=== PATIENT | female | born 1950 | race Caucasian/White ===

== ENCOUNTER 2019-04-08 10:09 | Inpatient (IN) | payer MEDICARE, OTHER, SELFPAY ==
[2019-04-01 09:41] VITALS: BMI 26.6
[2019-04-08] VITALS (16 sets, daily range): BP systolic 100–135; BP diastolic 55–95; PULSE 87–125; RESP 12–18; TEMP 36–36.8; O2SAT 89–98; BMI 26.6
--- NOTE | 2019-04-08 | DI.RAD.S_ITS ---
PROCEDURE: XR LUMBAR SPINE 2-3V INDICATIONS: L4-5, L5-S1 TLIF TECHNIQUE: 2 views of the lumbar spine were acquired. COMPARISON: None. FINDINGS: 2 intraoperative fluoroscopic images of the lumbar spine were acquired. Patient is status post posterior spinal fusion of L4-S1 with bilateral paraspinal rods and pedicular screws. Intervertebral disc graft is noted at L4-5 and L5-S1. Postoperative alignment appears anatomic. No acute hardware complication. IMPRESSION: Status post posterior spinal fusion of L4-S1. No acute hardware complication. Dictated by: Kamari Toscano M.D. on 04/08/2019 at 15:35 Approved by: Kamari Toscano M.D. on 04/08/2019 at 15:39
[2019-04-08] MEDS: LACTATED RINGERS 1,000 ML 42 ML IV ×2 (10:41→13:52)
--- NOTE | 2019-04-08 11:39 | PM.PREOP ---
Pre-operative Note Interval Note History & Physical reviewed/Exam performed by Physician: Yes Changes to H&P: No
[2019-04-08] MEDS: fentaNYL 100 MCG/2 ML INJ 50 MCG IV (12:02)
[2019-04-08] MEDS: CEFAZOLIN 2 GM/100 ML FROZ.PIGGY IV ×2 (12:15→21:16)
--- NOTE | 2019-04-08 12:58 | SUR.OPER ---
Prone on spine table, head in foam head support, padded chest and pelvic supports, gel pad at knees, lower legs supported by pillows; nipples, genitalia and toes free of pressure, arms secured on foam padded arm boards at <90 degrees abduction. Tape over blanket at thigh secured to table.
[2019-04-08] MEDS: BUPIVACAINE LIPOSOME 266 MG/20 ML VIAL INJ (13:08)
[2019-04-08] MEDS: BUPIVACAINE 0.25% W/ EPI 30 ML VIAL INJ (13:08)
--- NOTE | 2019-04-08 15:47 | P.OP_ITS ---
Operative Date/Time/Diagnoses Date of procedure: 04/08/19 Time of procedure: 12:45 Pre-op diagnosis: 1. Lumbar spinal stenosis L4-5, L5-S1 2. Lumbar spinal stenosis L4-5, L5-S1 Post-op diagnosis: same Procedure & Clinicians Procedure: 1. L4-5, L5-S1 Postero-lateral and posterior interbody fusion 2. L4-5, L5-S1 interbody cage placement. 3. L4-5, L5-S1 decompressive laminectomy with bilateral facetecomies 4. L4-5, L5-S1 Posterior segmental instrumentation 5. [place] of bone marrow from iliac crest 6. Utilization of microsurgical technique and operating microscope Same procedure as scheduled: Yes Indications: Patient has been having chronic back pain and worsening lumbar radiculopathy. Patient failed multiple conservative management with worsening pain weakness and numbness in her lower extremity. Patient has been having difficulty performing activity of daily living. After discussing risks benefits of treatment options, patient elected proceed with surgery. Surgeon: Alonso Zambrano Global Marketing Coordinator: Polly Peraza Click Yes if Unassisted: No Anesthesia Type: General Operative Notes Closure Type: primary Specimen(s): none sent Prosthetic devices, grafts, tissues, transplants, or devices: Globus revolve screws, Rise cages Applied: catheter Estimated Blood Loss (mL): 100 Blood products transfused: none Procedure in detail: Patient was seen in the preoperative area. Risks and benefits of the surgery was discussed with the patient. Informed consent was obtained from the patient and placed in the chart. Surgical site was marked. Patient was taken to the operative room. General anesthesia was administered. Prophylactic antibiotic was given to the patient less than 30 min before the incision was made. Patient was placed into a prone position on the Jeff table. Patient's back was then prepped and draped in the sterile fashion. Time- out was performed at this time. Using AP and lateral C-arm imaging the interval between L4-S1 was identified and marked on patient's back. A 2 inch incision 2 in from midline was made on the left side first. The fascia was incised in line with skin incision. Globus MARS retractors was placed inside the incision and docked onto the L4 and L5 lamina. Using microsurgical technique and operating microscope, a L4 and L5 laminectomy and L4-5 L5-S1 facetectomy was performed using a Kerrison rongeur. During the process of decompression more than 75% of bilateral L4-5 L5-S1 facets were removed in order to decompress the spinal canal and the lateral recess. The L4- 5 L5-S1 level was grossly unstable after the decompression was completed and requiring the fusion procedure. Patient was found have severe neural foramen and central stenosis, which was fully decompressed after decompression was completed. The disc space at L4-5, L5-S1 was identified. And a total diskectomy was performed at L4-5, L5-S1 level. The endplates were decorticated using a rasp and shaver. The total diskectomy and decortication was performed at L4-5, L5-S1 level in order to to accomplish a L4-5, L5-S1 fusion. The local bone from the laminectomy and facetectomy was saved for local bone grafting. After the total diskectomy and decortication was completed, Bio4 bone graft material was combined with local bone that was harvested earlier. At this time, a separate skin is incision was made over the iliac crest. A Jamshidi needle was inserted into the iliac crest through a separate skin incision. 5 cc of bone marrow aspiration was obtained through the separate skin incision using a Jamshidi needle from the iliac crest. The bone marrow aspiration was combined with local bone and the Bio4 bone grafting material. The bone grafting material was placed into the L4-5, L5-S1 interbody space along with two cages, one expandable cage at each level. The cages were expanded to their maximum height using the torque limiting screwdriver. At this time a mirror image incision was made on the right side. The fascia was incised in line with the skin incision. Globus MARS retractor was inserted and docked onto the L4-5, L5-S1 posterolateral gutter. Using the power drill, posterior-lateral decortication was performed at L4-5, L5-S1 level until bleeding cortical bone was identified. The remaining bone grafting material was placed into the L4-5 L5-S1 posterior lateral gutter he order to accomplish posterolateral fusion at the L4-5 L5-S1 levels. Using the double C-arm technique, pedicle screws were placed into the L4, L5, S1 pedicles bilaterally. This was done by placing the Jamshidi needle into the pedicles, then placing the guidewires over the Jamshidi needle, and finally placing the cannulated screws over the guidewires bilaterally. After the pedicle screws were placed, 2 titanium rods was locked into the heads of the pedicle screws using locking caps and torque limiting screwdriver. Total 6 pedicles screws were placed. After all the hardware was placed, and confirmed with AP and lateral C-arm imaging, the wound was then irrigated with sterile normal saline and packed with Ray-Stephen gauze for 3 min to accomplish hemostasis. After the gauze was removed the deep fascia was closed with #1 Vicryl suture. The subcutaneous layer was closed with 2-0 Vicryl. The skin was closed with skin bryn. Patient tolerated the procedure well. There were no complications. Complications: none Condition: stable Disposition: PACU Plan for aftercare: Admit to inpatient hospital
[2019-04-08] MEDS: HYDROMORPHONE 2 MG INJ 0.5 MG IV ×8 (16:00→16:35)
[2019-04-08] MEDS: hydrOXYzine 50 MG/ML INJ 25 MG IM (16:20)
[2019-04-08] MEDS: SODIUM CHLORIDE 0.9% 1,000 ML 100 ML IV (17:50)
--- NOTE | 2019-04-08 19:24 | PM.PNPO.1 ---
Subjective Date Patient Seen: 04/08/19 Time Patient Seen: 19:24 Interval history: Patient is status post spine surgery earlier today. According to the nursing staff and patient came from surgery she was quite apneic and was only breathing 7-9 breaths per minute. Took quite sometime to wake the patient back up. No Narcan was given. Patient was initially on 5 L but is now breathing fine on 2 L with her CPAP. Main issue has been tachycardia where her pulse has been in the 120s. Exam Vital Signs (past 8 hours): - 04/08/19 15:40 04/08/19 15:45 04/08/19 16:00 Temperature 96.9 F L 97.4 F L 97.2 F L Pulse Rate 99 H 97 H 98 H Respiratory Rate 14 12 12 Blood Pressure 108/55 L 113/72 127/85 Pulse Oximetry 92 93 94 04/08/19 16:14 04/08/19 16:30 04/08/19 16:40 Temperature 97.1 F L 97.2 F L 97.2 F L Pulse Rate 89 93 H 89 Respiratory Rate 18 12 12 Blood Pressure 134/82 128/73 132/88 Pulse Oximetry 94 93 98 04/08/19 16:50 04/08/19 17:10 04/08/19 17:40 Temperature 97.2 F L 96.8 F L 97.3 F L Pulse Rate 87 105 H 102 H Respiratory Rate 14 16 15 Blood Pressure 127/95 H 122/75 100/70 Pulse Oximetry 93 89 L 93 04/08/19 18:10 Temperature 97.4 F L Pulse Rate 99 H Respiratory Rate 16 Blood Pressure 119/88 Pulse Oximetry 97 Oxygen Delivery Method Nasal Cannula Oxygen Flow Rate 4 Narrative Exam Narrative: Patient was seen in her hospital room this evening. She is resting comfortably. No sign of any distress. Patient's pulse ox and blood pressure were stable. Pulse at the time of visit was 123. Patient is breathing above 90% at 2 L. Assessment & Plan Post-op Postoperative Procedures Operation Date: 04/08/19 12:15 Actual Procedures Side Surgeon p L4-5,L5-S1 TLIF w/posterior instrumentation Alonso Zambrano MD Time Spent With Patient less than 15 minutes Quality VTE Deep Vein Thrombosis/Pulmonary Embolism Present on Admission: No
--- NOTE | 2019-04-08 19:42 | PC.NURSE ---
Addendum entered by Koki Austin R.N. 04/08/19 23:25: Until 2099 patient sleeping, snoring, CPAP on with 4L O2 bled into machine, saturation 90-94% HR still tachycardic at 125 bpm. Since 2099 Batsheva has been wide awake, oriented x 3, told me she did not remember anything since in pre-op. RA oxygen 98%, no SOB observed. HR still tachycardic at 112-120 bpm. CMS intact. She tolerated jello and coffee. Reported low back and LLE pain 06/08, assisted her to reposition in bed with little to no relief. Ice pack in place to low back, drsg remains CDI. Medicated with oxycodone and tylenol. Call button use reinforced, patient reoriented to room & call button. Spouse here until 1999 then left for the night. Original Note: Post-op notes: Batsheav brought from PACU very sedated, unable to keep patient awake for more than 20-30 seconds before she would fall back asleep. Only able to wake with loud voice or touch. HR 100-102 bpm, LANDSCAPE CONTRACTOR clarified that she had been around 100 bpm post-operatively. 2L O2 sat dropping to 87% When I switched her over from NC to CPAP mask, sats 84% and slowly dropping. 2L o2 weaned into CPAP with sats only 88% I then increased O2 to 5L weaned into CPAP & sats then maintained 91-92% Face very pale. Unable to keep patient awake, respirations at that time were 8 or 9/minute. I notified Antonia rust RN of this situation, I also notified her that I did not have a prn order for Narcan. Surgery told me that Dr Zambrano was not in hospital any longer. Antonia called down to OR and asked if Dr Couch would come & see patient when available. Patient's spouse Suman told me that she had no cardiac history except for vasovagal something where her BP would drop & she would almost pass out. Since that time patient has woken up more, wakes easily to voice, speech clear somtimes slurred, oriented to situation. Face flushed pink, HR increasingly tachycardic in the last hour, HR now sustaining 120-125 bpm, BP 119/88 & 125/85. CMS intact, she denies numbness/tingling to extremities. Foot SCD's in place. Bulky gauze drsg to back is CDI. I notified Dr Couch of increased tachycardia and previous apnea/sedation, he came up to see patient. Ordered to keep monitoring HR & VS.
[2019-04-08] MEDS: ONDANSETRON 4 MG ODT 8 MG PO (22:47)
[2019-04-08] MEDS: ACETAMINOPHEN 325 MG TABLET 650 MG PO (22:48)
[2019-04-08] MEDS: OXYCODONE IR 10 MG TABLET PO (22:48)
[2019-04-09] MEDS: OXYCODONE IR 10 MG TABLET PO ×5 (03:28→18:22)
[2019-04-09] MEDS: CEFAZOLIN 2 GM/100 ML FROZ.PIGGY IV (03:28)
[2019-04-09] MEDS: SODIUM CHLORIDE 0.9% 1,000 ML 100 ML IV (03:29)
[2019-04-09 03:34] VITALS: BP 101/58; PULSE 94; RESP 16; TEMP 36.8; O2SAT 92
[2019-04-09 05:54] LABS: Hematocrit 35.9 % (36-46); Hemoglobin 12.6 g/dL (12.0-16.0)
[2019-04-09] MEDS: LEVOTHYROXINE 50 MCG TABLET PO (05:56)
[2019-04-09] MEDS: LIOTHYRONINE 25 MCG TABLET PO (05:56)
--- NOTE | 2019-04-09 07:26 | P.PN_ITS ---
Subjective Date Patient Seen: 04/09/19 Time Patient Seen: 07:23 Interval history: Patient's pain this morning is mild. Denies fever chills. No nausea vomiting. She is having no chest pain or shortness of breath. Denies feeling dizzy lightheaded. She has not been out of bed since surgery. States she was slow to come out of anesthesia yesterday afternoon. will be home available to assist her upon discharge. Exam Vital Signs (past 8 hours): - 04/08/19 23:50 04/09/19 03:34 Temperature 98.2 F 98.2 F Pulse Rate 108 H 94 H Respiratory Rate 18 16 Blood Pressure 112/70 101/58 L Pulse Oximetry 93 92 Oxygen Delivery Method Room Air,CPAP Oxygen Flow Rate 4 Narrative Exam Narrative: Pleasant 68-year-old female resting comfortably in bed in no apparent distress. Lumbar dressing is clean, dry and intact. Motor function is intact bilateral lower extremities. Sensation grossly intact to light touch bilateral lower extremities. Both legs are warm and dry. SCDs are on bilateral lower extremities. Objective Labs Result Diagrams: 04/09/19 05:30 Labs: Laboratory Results - last 24 hr 04/09/19 05:30 Hgb 12.6 Hct 35.9 L Assessment & Plan Post-op Postoperative Procedures Operation Date: 04/08/19 12:15 Actual Procedures Side Surgeon p L4-5,L5-S1 TLIF w/posterior instrumentation Alonso Zambrano MD Postop day 1 status post L4-L5, L5-S1 fusion. Reviewed note by Dr. Couch from yesterday afternoon. Patient had remained stable overnight. Will order [facility]. Mobilize with physical therapy. Limit bending, twisting, lifting. Likely discharge home tomorrow. Quality VTE Deep Vein Thrombosis/Pulmonary Embolism Present on Admission: No
[2019-04-09 07:40] VITALS: BP 119/79; PULSE 100; RESP 16; TEMP 36.9; O2SAT 93
[2019-04-09] MEDS: GABAPENTIN 300 MG CAPSULE 900 MG PO (08:14)
[2019-04-09] MEDS: PANTOPRAZOLE 40 MG TABLET PO ×2 (08:15→21:50)
[2019-04-09] MEDS: DOCUSATE 100 MG CAPSULE PO ×2 (08:15→21:50)
[2019-04-09] MEDS: ONDANSETRON 4 MG ODT 8 MG PO ×2 (08:17→18:22)
[2019-04-09 08:28] LABS: Alanine Aminotransferase 34 IU/L (9-52); Albumin Globulin Ratio 1.4 (1.0-2.8); Alkaline Phosphatase 50 U/L (38-126); Aspartate Aminotransferase 41 IU/L (14-36); Bilirubin Total 0.4 mg/dL (0.2-1.3); Blood Urea Nitrogen 10 mg/dL (7-17); Calcium 8.5 mg/dL (8.4-10.2); Carbon Dioxide 29 mmol/L (22-32); Chloride 105 mmol/L (98-107); Estimated Glomerular Filt Rate > 60.0 mL/min (>60); Globulin 2.2 g/dL (1.7-4.1); Glucose 111 mg/dL (80-110); HEMOLYSIS < 15 (0-50); Sodium 138 mmol/L (137-145); Total Protein 5.2 g/dL (6.3-8.2)
[2019-04-09] MEDS: ACETAMINOPHEN 325 MG TABLET 650 MG PO (09:23)
--- NOTE | 2019-04-09 10:02 | PT.IIE ---
Current Diagnoses Other spondylosis with radiculopathy, lumbosacral region (04/08/19) Spinal stenosis, lumbar region without neurogenic claudication (04/08/19) Postlaminectomy syndrome, not elsewhere classified (04/08/19) Surgery Performed Operation Date: 04/08/19 12:15 Actual Procedures p L4-5,L5-S1 TLIF w/posterior instrumentation - Alonso Zambrano MD Surgical History (Last Updated 04/01/19 @ 10:30 by Taryn Brewster RN) History of bilateral carpal tunnel release (Acute) History of bilateral cataract extraction (Acute ~2010) History of bladder suspension procedure (Acute) History of laparotomy (Acute) History of surgery (Acute ~1955) History of total abdominal hysterectomy and bilateral salpingo-oophorectomy (Acute ~1978) Hx of appendectomy (Acute) Hx of cardiac catheterization (Acute ~07/2011) Hx of cholecystectomy (Acute ~1998) Hx of laminectomy (Acute ~2011) History of stress incontinence procedure using tension free vaginal tape (Resolved) Status post hysterectomy Status post ovarian cystectomy Medical History (Last Updated 04/01/19 @ 10:37 by Taryn Brewster, ISABELLE) Anemia (Acute) Arrhythmia (Acute) Arthritis (Acute) BLAYNE III (cervical intraepithelial neoplasia III) (Acute) Cervical spondylosis (Acute) Compression fracture of T12 vertebra (Acute) Depression (Acute) Elevated diaphragm (Acute) Fibromyalgia (Acute) GERD (gastroesophageal reflux disease) (Acute) Gastroparesis (Acute) HLD (hyperlipidemia) (Acute) HTN (hypertension) (Acute) Heart murmur (Acute) History of blood clots (Acute ~1974) History of electrophysiologic study (Acute ~11/2011) Hx of vaginal delivery (Acute) Hypothyroidism (Acute) Lymphocytic colitis (Acute) Near syncope (Acute) Non-sustained ventricular tachycardia (Acute) Numbness (Acute ~2018) ELIAS on CPAP (Acute) Ovarian cyst (Acute) RLS (restless legs syndrome) (Acute) Urinary incontinence (Acute) Physical Therapy Inpatient Evaluation/Re-Eval M1 PT/OT-IP Prior Functional Status Start: 04/09/19 11:40 Freq: NEEDED Status: Active Protocol: Document 04/09/19 10:02 AB (Rec: 04/09/19 11:50 AB [id number]) Medical Review Prior Functional Status Medical History Reviewed Yes Communication able to maken needs known Mobility and Gait pt stated that her spouse has been helping her for the last 3 weeks due to her back pain and has been using a FWW. prior to that, pt was independent with all mobilities and ambulation without AD Activities of Daily Living and IADL's pt stated that her spouse assists her with dressing, getting in /out of the shower and stair climbing Social History Household Members spouse Living Arrangements House Number of Floors (Floors) Two Floors Number of Stairs To Enter/Railing? will stay on main level of the house has 2 steps without rails to enter Home Environment Standard Height Toilet Walk in Shower Home Equipment Front Wheel Walker Straight Cane Shower Seat with Backrest Hand Held Shower Auto Air Conditioning Mechanic M2 PT-IP Current Condition Start: 04/09/19 11:40 Freq: NEEDED Status: Active Protocol: Document 04/09/19 10:02 AB (Rec: 04/09/19 11:50 AB [id number]) Physical Therapy Current Condition Current Condition Evaluation Date 04/09/19 Treatment Diagnosis s/p L4-S1 fusion/lami; difficulty in walking Onset Date 04/08/19 Precautions Lumbar Precautions Log Roll No Twisting Limit Bending Lifting Restriction of 10 lbs Gait Belt above Incisional Area M3 PT-IP Subjective Start: 04/09/19 11:40 Freq: NEEDED Status: Active Protocol: Document 04/09/19 10:02 AB (Rec: 04/09/19 11:50 AB [id number]) Subjective Physical Therapy Visit Type Type Initial Evaluation Visit Start Time 10:02 Visit Stop Time 10:42 Total Visit Minutes 40 Number of B[employer]ER [employer]TERY Visits 0 Physical Therapy Visit Comments Patient Comments pt agreeable to do PT Therapy Pain Assessment Pain When Pain Assessed At Rest Pain Present Pain Present Pain Reported Location Lower Back Intensity 4 Scale Used increases to 6/10 with movement Pain Management Techniques Apply Cold Re-positioning Timing of Activity with Medications M4 PT-IP Mobility and Gait Start: 04/09/19 11:40 Freq: NEEDED Status: Active Protocol: Document 04/09/19 10:02 AB (Rec: 04/09/19 11:50 AB [id number]) PT-Bed Mobility Assessment Rolling Type of Rolling Log Rolling Level of Assist Minimal Assistance Supine to Sit Supine to Sit Minimal Assistance Scooting Scooting to Edge of Bed Standby Assistance PT-Transfer Assessment Sit to and From Stand Sit to and from Stand Moderate Assistance 1 Person Assistance Use of Upper Extremities Equipment Transfer Assistive Device Gait Belt Front Wheeled Walker Orthotic/Prosthetic Devices or Brace: No Transfers Transfer Destination Chair Transfer Technique Stand Step Pivot Transfer Ability Level of Assist Moderate Assistance Use of Upper Extremities Gait Assessment Gait Gait Assistance Required: Moderate Assistance Distance (Feet) 25 Able to Maintain Weight Bearing Status Yes During Gait Assistive Devices Assistive Device Gait Belt Front Wheeled Walker Orthotic/Prosthetic Devices or Brace: No Gait Deviations General Gait Pattern Antalgic Decreased Stride Length Decreased Feet Clearance Step-to Gait Factors Limiting Gait Function Factors Limiting Gait Function Decreased Activity Tolerance Decreased Sensation Decreased Strength Limited Range of Motion Pain Poor Balance Poor Safety Awareness PT-Balance Assessment Sitting Balance and Reactions Static Sitting Balance Ability Good Dynamic Sitting Balance Ability Good Standing Balance and Reactions Static Standing Balance Ability Fair Dynamic Standing Balance Ability Fair Device Used FWW M5 PT-IP Objective Assessments Start: 04/09/19 11:40 Freq: NEEDED Status: Active Protocol: Document 04/09/19 10:02 AB (Rec: 04/09/19 11:50 AB [id number]) Orientation Orientation/Cognition Level of Alertness Alert Orientation Name Place Situation Safety Awareness Decreased Safety Awareness Memory Description Short Term Impaired Gross Range of Motion Lower Extremity ROM Assessment Within Functional Limits Strength Lower Extremity Strength Assessment Bilaterally Impaired Comments Strength Comments RLE 4-/5 LLE: 3+/5 Coordination Assessment Gross Coordination Gross Coordination WNL Sensation Assessment Sensation Gross Sensation Left LE Impaired Light Touch Impaired Proprioception (Position) Impaired Sensation Description Numbness Tingling Muscle Tone Muscle Tone WNL Yes M6 PT-IP Treatment Start: 04/09/19 11:40 Freq: NEEDED Status: Active Protocol: Document 04/09/19 10:02 AB (Rec: 04/09/19 11:50 AB [id number]) Physical Therapy Treatment Education Education Provided Precautions Weight Bearing Status Post-Op Packet Safety M7 PT-IP Assessment and Plan Start: 04/09/19 11:40 Freq: NEEDED Status: Active Protocol: Document 04/09/19 10:02 AB (Rec: 04/09/19 11:50 AB [id number]) PT Summary Assessment and Plan Potential Rehabilitation Potential Good Status of Condition at Evaluation Stable Summary Impairments Pain ROM Strength Balance Coordination Sensation Tone Cognition Bed Mobility Transfers Gait Activity Tolerance Assessment Summary pt requiring mod A with mobility and can be impulsive. pt will likely improve during hospital stay and spouse will be able to assist pt at home. will conduct caregiver training when appropriate and complete stair climbing training prior to d/ c. Goals Bed Mobility Goal Independent Transfer Goal Standby Assistance Front Wheeled Walker Gait Goal Standby Assistance Front Wheel Walker Gait Distance 150 Other Goals up/down 2 steps without rails: use SPC/CUT FILER CGA Days to Meet Goals 5 Frequency of Treatment Frequency Of Treatment Twice a Day Treatment Plan Physical Therapy Treatment Plan Bed Mobility Training Transfer Training Gait Training Therapeutic Exercise Balance Retraining Post Op Education Discharge Planning Hot or Cold Pack Neuromuscular Re-ed Coordination Retraining Manual Therapy Recommendations To Nursing Amount of Assist Needed 1 Person Assist Discharge Recommendations PT Discharge Recommendations Home with Assistance
[2019-04-09 11:42] VITALS: BP 130/71; PULSE 104; RESP 20; TEMP 36.4; O2SAT 94
--- NOTE | 2019-04-09 11:42 | PC.NURSE ---
Day Shift- Pt A&OX4, able to make needs known using call light. Rates 6-7/10 pain this AM to surgical site incision area. PRN Oxycodone given X2 at 0815 & 1135. Pt requested prn Zofran with Oxycodone to prevent nausea. Tylenol prn given at 0925 per pt request due to pain not decreasing after 0815 Oxycodone dose. Lower back incision covered with bulky dresisng that is intact with small amount of bloody drainage shadowing to right mid dressing. Pt reports numbness from left toes to below knee that is not new and numbness to right thigh that is chronic. HR tachy 90's-low 100's. Dr's previously aware. IVF infusing well, enc pt to drink fluids. Urinary catheter remains in place at this time until PT session. Will monitor.
--- NOTE | 2019-04-09 13:00 | PT.IPTN ---
Current Diagnoses Other spondylosis with radiculopathy, lumbosacral region (04/08/19) Spinal stenosis, lumbar region without neurogenic claudication (04/08/19) Postlaminectomy syndrome, not elsewhere classified (04/08/19) Surgery Performed Operation Date: 04/08/19 12:15 Actual Procedures p L4-5,L5-S1 TLIF w/posterior instrumentation - Alonso Zambrano MD Physical Therapy Treatment Note M2 PT-IP Current Condition Start: 04/09/19 11:40 Freq: NEEDED Status: Active Protocol: Document 04/09/19 10:02 AB (Rec: 04/09/19 11:50 AB [id number]) Physical Therapy Current Condition Current Condition Evaluation Date 04/09/19 Treatment Diagnosis s/p L4-S1 fusion/lami; difficulty in walking Onset Date 04/08/19 Precautions Lumbar Precautions Log Roll No Twisting Limit Bending Lifting Restriction of 10 lbs Gait Belt above Incisional Area M3 PT-IP Subjective Start: 04/09/19 11:40 Freq: NEEDED Status: Active Protocol: Document 04/09/19 13:00 AB (Rec: 04/09/19 13:38 AB [id number]) Subjective Physical Therapy Visit Type Type Treatment Note Visit Start Time 13:00 Visit Stop Time 13:18 Total Visit Minutes 18 Number of PAINT DEPARTMENT SUPERVISOR Visits 0 Physical Therapy Visit Comments Patient Comments pt agreeable to do PT Therapy Pain Assessment Pain When Pain Assessed At Rest Pain Present Pain Present Pain Reported Location Lower Back Scale Used pain scale not stated but stated pain is ok Pain Management Techniques Timing of Activity with Medications M4 PT-IP Mobility and Gait Start: 04/09/19 11:40 Freq: NEEDED Status: Active Protocol: Document 04/09/19 13:00 AB (Rec: 04/09/19 13:38 AB [id number]) PT-Transfer Assessment Sit to and From Stand Sit to and from Stand Minimal Assistance 1 Person Assistance Equipment Transfer Assistive Device Gait Belt Front Wheeled Walker Orthotic/Prosthetic Devices or Brace: No Gait Assessment Gait Gait Assistance Required: Minimum Assistance Distance (Feet) 60 Able to Maintain Weight Bearing Status Yes During Gait Assistive Devices Assistive Device Gait Belt Front Wheeled Walker Orthotic/Prosthetic Devices or Brace: No Gait Deviations General Gait Pattern Antalgic Decreased Stride Length Decreased Feet Clearance Factors Limiting Gait Function Factors Limiting Gait Function Decreased Activity Tolerance Decreased Sensation Decreased Strength Limited Range of Motion Pain Poor Balance Poor Safety Awareness M5 PT-IP Objective Assessments Start: 04/09/19 11:40 Freq: NEEDED Status: Active Protocol: Document 04/09/19 10:02 AB (Rec: 04/09/19 11:50 AB [id number]) Orientation Orientation/Cognition Level of Alertness Alert Orientation Name Place Situation Safety Awareness Decreased Safety Awareness Memory Description Short Term Impaired Gross Range of Motion Lower Extremity ROM Assessment Within Functional Limits Strength Lower Extremity Strength Assessment Bilaterally Impaired Comments Strength Comments RLE 4-/5 LLE: 3+/5 Coordination Assessment Gross Coordination Gross Coordination WNL Sensation Assessment Sensation Gross Sensation Left LE Impaired Light Touch Impaired Proprioception (Position) Impaired Sensation Description Numbness Tingling Muscle Tone Muscle Tone WNL Yes M6 PT-IP Treatment Start: 04/09/19 11:40 Freq: NEEDED Status: Active Protocol: Document 04/09/19 13:00 AB (Rec: 04/09/19 13:38 AB [id number]) Physical Therapy Treatment Education Education Provided Precautions Safety M7 PT-IP Assessment and Plan Start: 04/09/19 11:40 Freq: NEEDED Status: Active Protocol: Document 04/09/19 13:00 AB (Rec: 04/09/19 13:38 AB [id number]) PT Summary Assessment and Plan Potential Rehabilitation Potential Good Summary Impairments Pain ROM Strength Balance Coordination Sensation Tone Cognition Bed Mobility Transfers Gait Activity Tolerance Progress Towards Goals Progressing Toward Goals Assessment Summary pt progressing with mobility. pt able to ambulate using FWW min A and cues cues for safety. will conduct stair training and caregiver training next tx session prior to d/c. set up caregiver training tomorrow 04/10/19 at 10 am with spouse. Goals Bed Mobility Goal Independent Transfer Goal Standby Assistance Front Wheeled Walker Gait Goal Standby Assistance Front Wheel Walker Gait Distance 150 Other Goals up/down 2 steps without rails: use SPC/LAP CUTTER TRUER OPERATOR CGA Days to Meet Goals 5 Frequency of Treatment Frequency Of Treatment Twice a Day Treatment Plan Physical Therapy Treatment Plan Bed Mobility Training Transfer Training Gait Training Therapeutic Exercise Balance Retraining Post Op Education Discharge Planning Hot or Cold Pack Neuromuscular Re-ed Coordination Retraining Manual Therapy Recommendations To Nursing Amount of Assist Needed 1 Person Assist Discharge Recommendations PT Discharge Recommendations Home with Assistance Equipment Needed for Home Before FWW Discharge
--- NOTE | 2019-04-09 14:50 | OT.IP.EVAL ---
Current Diagnoses Other spondylosis with radiculopathy, lumbosacral region (04/08/19) Spinal stenosis, lumbar region without neurogenic claudication (04/08/19) Postlaminectomy syndrome, not elsewhere classified (04/08/19) Surgery Performed Operation Date: 04/08/19 12:15 Actual Procedures p L4-5,L5-S1 TLIF w/posterior instrumentation - Alonso Zambrano MD Past Medical History (Last Updated 04/01/19 @ 10:37 by Taryn Brewster, RN) Anemia (Acute) Arrhythmia (Acute) Arthritis (Acute) BLAYNE III (cervical intraepithelial neoplasia III) (Acute) Cervical spondylosis (Acute) Compression fracture of T12 vertebra (Acute) Depression (Acute) Elevated diaphragm (Acute) Fibromyalgia (Acute) GERD (gastroesophageal reflux disease) (Acute) Gastroparesis (Acute) HLD (hyperlipidemia) (Acute) HTN (hypertension) (Acute) Heart murmur (Acute) History of blood clots (Acute ~1974) History of electrophysiologic study (Acute ~11/2011) Hx of vaginal delivery (Acute) Hypothyroidism (Acute) Lymphocytic colitis (Acute) Near syncope (Acute) Non-sustained ventricular tachycardia (Acute) Numbness (Acute ~2018) ELIAS on CPAP (Acute) Ovarian cyst (Acute) RLS (restless legs syndrome) (Acute) Urinary incontinence (Acute) Surgical History (Last Updated 04/01/19 @ 10:30 by Taryn Brewster, RN) History of bilateral carpal tunnel release (Acute) History of bilateral cataract extraction (Acute ~2010) History of bladder suspension procedure (Acute) History of laparotomy (Acute) History of surgery (Acute ~1955) History of total abdominal hysterectomy and bilateral salpingo-oophorectomy (Acute ~1978) Hx of appendectomy (Acute) Hx of cardiac catheterization (Acute ~07/2011) Hx of cholecystectomy (Acute ~1998) Hx of laminectomy (Acute ~2011) History of stress incontinence procedure using tension free vaginal tape (Resolved) Status post hysterectomy Status post ovarian cystectomy Occupational Therapy Inpatient Evaluation/Re-Eval M1 PT/OT-IP Prior Functional Status Start: 04/09/19 14:23 Freq: NEEDED Status: Active Protocol: Document 04/09/19 14:25 [facility] (Rec: 04/09/19 14:49 [facility] [id number]) Medical Review Prior Functional Status Medical History Reviewed Yes Communication able to make needs known Mobility and Gait pt stated that her spouse has been helping her for the last 3 weeks due to her back pain and has been using a FWW. prior to that, pt was independent with all mobilities and ambulation without AD Activities of Daily Living and IADL's pt stated that her spouse assists her with dressing, getting in /out of the shower and stair climbing Social History Household Members spouse Living Arrangements House Number of Floors (Floors) Two Floors Number of Stairs To Enter/Railing? will stay on main level of the house has 2 steps without rails to enter Home Environment Standard Height Toilet Walk in Shower Home Equipment Front Wheel Walker Straight Cane Shower Seat with Backrest Hand Held Shower Acetylene Burner M2 OT-IP Current Condition Start: 04/09/19 14:23 Freq: Status: Active Protocol: Document 04/09/19 14:25 [facility] (Rec: 04/09/19 14:49 [facility] [id number]) Occupational Therapy Current Condition Current Condition Evaluation Date 04/09/19 Treatment Diagnosis L4-5, L5-S1 lumbar spinal stenosis Diagnosis Onset Date 04/08/19 Post Operative Precautions Lumbar Precautions Log Roll No Twisting Limit Bending Lifting Restriction of 10 lbs Gait Belt above Incisional Area Weight Bearing Status Weight Bearing Status Weight Bear as Tolerated M3 OT- IP Subjective and Pain Start: 04/09/19 14:23 Freq: Status: Active Protocol: Document 04/09/19 14:25 [facility] (Rec: 04/09/19 14:49 [facility] [id number]) OT- Subjective Occupational Therapy Visit Type Type Initial Evaluation Visit Start Time 13:03 Visit Stop Time 13:48 Total Visit Minutes 45 Occupational Therapy Visit Comments Patient Comments Pt very cooperative and pleasant and motivated to go home. OT Pain Assessment Pain When Pain Assessed During Mobility Pain Present Pain Present Pain Reported Location Lower Back Intensity 5 Scale Used Numeric (1 - 10) Management Techniques Re-positioning Timing of Activity with Medications M4 OT- IP ADL's Start: 04/09/19 14:23 Freq: Status: Active Protocol: Document 04/09/19 14:25 [facility] (Rec: 04/09/19 14:49 [facility] [id number]) OT ADL-Grooming Comments OT Grooming Comments Pt just wanting to get back to the bed. Able to touch base with pt to either bend at hips to spit or spit into cup while brushing her teeth. OT ADL-Dressing General Eval Lower Body Dressing Ability Maximum Assistance Areas Needing Assistance Shoes Comments OT Dressing Comments Pt not wanting to be shown or educated on sock aid and aware as in the past took care of her mother in law. Pt able to educated to chloe left side first as it in weaker and take out last. In addition long handle shoe horn may be beneficial for pt. Pt states will be assist her for LB dressing needs. OT ADL-Toileting Comments OT Toileting Comments Pt still has cathetar in. Pt has long arms and educated easier to stand to wipe if not able to reach while leaning over to the side with back straight. Pt states prior wears pads. OT ADL-Bathing Comments OT Bathing Comments Not ready at this time, to try tomorrow if appropriate. M5 OT- IP IADL's Start: 04/09/19 14:23 Freq: Status: Active Protocol: Document 04/09/19 14:25 [facility] (Rec: 04/09/19 14:49 [facility] [id number]) OT-Instrumental Activities of Daily Living Home Safety Awareness Awareness of Need for Assistance at Home Good Awareness Money Management Money Management Comments Pt aware as pain medications affect for thinking that she is aware to have assist for needs. Meal Preparation Meal Preparation Caregiver Provides Assist Ell Tutor Ell Tutor Caregiver Provides Assist M6 OT- IP Functional Cognition Start: 04/09/19 14:23 Freq: Status: Active Protocol: Document 04/09/19 14:25 [facility] (Rec: 04/09/19 14:49 [facility] [id number]) Cognitive Factors Limiting Selfcare Function Cognitive Ability Level of Alertness Alert Patient Orientation Name Age Birthday Month Date Year Day of Week Place Situation Attention Span Ability Capable of Focused Attention Capable of Sustained Attention Ability to Follow Commands Able to Follow Multi-Step Commands Memory Description Short Term Impaired Safety Awareness Decreased Recall of Precautions Decreased Ability to Apply Precautions Problem Solving Ability Needs Assist to Identify Solutions Cognitive Comments Cognitive Assessment Comments Pt needing cues to recall back precautions and also to incorporate during needs. Pt tends to twist while moving especially when talking to people. OT- Vision and Hearing OT- Hearing Assessment OT- Hearing Assessment WFL OT- Vision Assessment Visual Acuity Glasses All The Time M7 OT- IP Mobility and Balance Start: 04/09/19 14:23 Freq: Status: Active Protocol: Document 04/09/19 14:25 [facility] (Rec: 04/09/19 14:49 [facility] [id number]) OT- Bed Mobility Assessment Sit to Supine Sit to Supine Assist Contact Guard Assistance OT-Transfer Assessment Sit to and From Stand Sit to and from Stand Contact Guard Assistance Minimal Assistance Transfers Transfer Ability Contact Guard Assistance Technique Transfer Destination Bed Chair Devices Transfer Assistive Devices Gait Belt Front Wheeled Walker OT- Balance Assessment Sitting Balance and Reactions Static Sitting Balance Ability Normal Dynamic Sitting Balance Ability Normal Standing Balance and Reactions Static Standing Balance Ability Good M8 OT- IP Objective Assessments Start: 04/09/19 14:23 Freq: Status: Active Protocol: Document 04/09/19 14:25 [facility] (Rec: 04/09/19 14:49 [facility] [id number]) OT Gross Range of Motion Upper Extremity Range of Motion Assessment Within Functional Limits OT Strength Upper Extremity Strength Assessment Within Functional Limits M9 OT- IP Assessment and Plan Start: 04/09/19 14:23 Freq: Status: Active Protocol: Document 04/09/19 14:25 [facility] (Rec: 04/09/19 14:49 [facility] [id number]) OT Summary Assessment and Plan Potential Rehabilitation Potential Good Analytic Complexity at Evaluation Low Summary OT Impairments Pain Balance Functional Cognition Functional Mobility Dressing Toileting Bathing Toilet Transfers Shower Transfers Progress Towards Goals Progressing Toward Goals Slow Progress due to Pain Assessment Summary Pt low complexity and pt's main barriers are steps, and now needing one person assist for ADl and functional mobility needs. Pt's to be home to assist and another family member to assist when pt's not present. Pt looking to go home when medically stable. Goals Grooming Goal Independent Dressing Goal Contact Guard Assistance Toileting Goal Standby Assistance Bathing Goal Contact Guard Assistance Toilet Transfer Goal Standby Assistance Shower Transfer Goal Contact Guard Assistance Patient/Caregiver Education Goal Caregiver Independent Assisting Patient Days to Meet Goals 3 Frequency of Treatment Frequency Of Treatment Once a Day Treatment Plan OT Treatment Plan ADL Training Functional Cognition Training Functional Mobility Patient/Family Education Discharge Planning Other Treatment Recommendations and Next shower Treatment Focus Discharge Recommendations OT Discharge Recommendations Home with Assistance Home Equipment Needs Shower chair
[2019-04-09 15:52] VITALS: BP 128/63; PULSE 106; RESP 18; TEMP 37; O2SAT 96
--- NOTE | 2019-04-09 16:14 | CM.DANOTE ---
Discharge Planning/Care Management DCP: assessment: case received, EMR reviewed and met with pt. Introduced self and role. Pt is a 68 year old female who admitted yesterday for a planned spinal surgery: Dr. Zambrano: surgeon PCP: Riana Stock Payer: Medicare and [employer]. Pt had first PT/OT sessions today and thus far is limited by servere pain. Pt does plan to go home with her 's assist and confirms he has been helping her with ADLs for the last 3 weeks as her back pain was limiting her independent abilities. Pt plans for a d/c to home setting with her 's assist. She is aware that she is well covered by her Medicare insurance for other d/c options should need arise. She plans to stay on main floor of her home. Has 2 steps/no rails to enty. P: home setting if possible as per above...DCP team will be following CM Discharge Assessment Start: 04/09/19 16:04 Freq: Status: Active Protocol: Document 04/09/19 16:04 ITV (Rec: 04/09/19 16:14 ITV [id number]) Discharge Planning Assessment Advance Directives? Yes Advance Directives on File No History Provided By Patient Medical Record Prior Living Arrangements House Household Members spouse Independent with ADL's Yes: except last 3 weeks Is patient alert and oriented? Yes Comment has old family walker: needs new one and plans to get this from the consignment closet . Whiteboard Updated in Patient Room with Yes name and ext. # of Dip Guider Stoves Review Status In Process Next Review Type Continued Stay Review Pre-Anesthesia Assessment Start: 04/01/19 09:41 Freq: Status: Complete Protocol: Document 04/01/19 09:41 CAB (Rec: 04/01/19 10:50 CAB [id number]) Pre-Anesthesia Assessment PAC Comment WBCs elevated 14.4 on outside labs 03/28/19, pt to follow-up w/PCP. Severe nausea, vomiting post -op Patient Also Known As (AKA) Lyn Patient Information Reviewed Via Phone Assessment Assessment Completed With Patient Diagnostic Results BMP/CMP CBC EKG Comment Outside labs/EKG scanned to record Primary Care Provider Thiago Noble Seen Specialist in Last 12 Months Yes Specialist Seen Terrazzo Mechanic Helper Orthopedist Urologist Other Comment GI Primary Language Vietnamese Briquetter Operator Required No Height 165.1 cm Weight 72.575 kg Body Mass Index (BMI) 26.6 Hearing Ability Normal Visual Assist Glasses Dentition Type Teeth, Natural Present Barriers to Learning None Other Aids Yes: CPAP Hx Anesthesia Reactions Yes: Severe nausea, vomiting post-op Hx Family Anesthesia Reaction No Hx Malignant Hyperthermia No Hx Blood Transfusions Yes: w/bladder suspension, autologous Hx Blood Transfusion Reaction No Comment Elevated right diaphragm Anesthesia Review Requested No Animal Rescuer No alcohol intake current alcohol intake frequency holidays/special occasions only Smoking Status Never smoker Substance Use Type does not use Pain Present Pain Reported Musculoskeletal Symptoms Abnormal Gait Back Pain Difficulty Walking Joint Pain Limited Range of Motion Muscle Cramps Muscle Spasms Numbness Radiating Pain into Limb History of Falling (Recent or History of No ) Patient is completely paralyzed or No completely immobile Prosthesis or Orthotic Device Front Wheel Walker Mental Status Oriented to own ability Is patient on oxygen? No Does patient have MCCABE/SOB Yes: r/t elevated right diaphragm Hx Sleep Apnea Yes CPAP/BIPAP use prescribed used intermittently Will Bring CPAP/BIPAP DOS Yes Currently Taking a Beta Cesar No Can You Climb a Flight of Stairs Without No: r/t elevated right SOB diaphragm Hx Chest Pain Yes: Atypical per Cardiolology Hx SOB Yes: r/t elevated right diaphragm Hx Syncope or Dizziness Yes: Hx of near syncope Anti-Coagulant Therapy No Has a Terrazzo Mechanic Helper Yes: Dr. Echols - last visit Cardiac Testing Yes: Nuc stress 05/03/18 Hx Pacemaker/ICD No Pacemaker Rep Required? No Comment Cardiac visit, stress scanned to record Diet Type At Home Regular dysphagia Yes: Occasional with food going down, I choke very easy Bladder Pattern Incontinent Retention Urinary Catheter Present No Hx Urinary Self Catheterization No Diabetes No Patient No Lactating No Hx Drug Resistant Organism No Presence of External or Internal Medical Yes: CPAP Devices Have you traveled outside the [facility] in the last 30 days? Marital Status Lives With spouse Prior Living Arrangements House Number of Floors (Floors) Two Floors Support System Spouse Does the Patient Have Assistance After Yes Surgery Patient Discharge Plan Description Return Home Comment Pt advised 2-3 day length of stay per surgeon's office Feels Safe in Current Environment Yes Been Physically Hurt or Threatened By a No Person in Current Environment Do you have thoughts of harming yourself None or others? Are you currently considering suicide? No Do you have a plan to hurt yourself or No Plan others? Do You Have Any Spiritual Beliefs That No May Affect Your HC Choices? Do You Have Any Cultural Practices That No May Affect Your HC Choices? Spiritual Referral None Comment Denominational Who Can We Speak to About Patient's Care Family, friends Identifying Code for Release of Patient Declines to issue Information Health Care Proxy/Next of Kin Suman () Health Care Proxy Emergency Contact Name Suman () Emergency Contact Advance Directives? Yes Advance Directives on File No Requested Patient Bring Advanced Yes Directives DOS Power of Online User Experience Strategist Yes Power of Online User Experience Strategist Name Suman () Power of Online User Experience Strategist PAC Instructions Bring CPAP/BIPAP Durable medical equipment Medications to take/avoid Nasal antibiotic No ETOH/petroleum product on skin DOS NPO Post-op transportation Pre-surgical wash Sensory aids Sturdy shoes/comfortable clothes Do not bring valuables and remove jewelry
[2019-04-09] MEDS: OXYBUTYNIN 5 MG ER TAB 10 MG PO (16:53)
[2019-04-09 21:11] VITALS: O2SAT 92
[2019-04-09] MEDS: GABAPENTIN 600 MG TABLET 1200 MG PO (21:50)
[2019-04-09] MEDS: SENNOSIDES 8.6 MG TABLET 17.2 MG PO (21:51)
[2019-04-09] MEDS: SODIUM CHLORIDE 0.9% FLUSH 10 ML IV (21:51)
--- NOTE | 2019-04-09 22:28 | PC.NURSE ---
A/O x4, 96%RA, own CPAP for sleep, no O2 bleen in. HR tachy 106, this shift. LFA SL. low back drsg small shadow drainage to lower right side, otherwise CDI. waffle cushion to back for comfort. BT+, no nausea, Oxy 10mg PO effective for pain, zofran Q-8hrs for preventative nausea. 1PA FWW to BRP to void. bed alarm for safety, call light in reach.
[2019-04-09 23:35] VITALS: BP 146/84; PULSE 115; RESP 17; TEMP 37.4; O2SAT 94
[2019-04-10] MEDS: OXYCODONE IR 10 MG TABLET PO ×2 (00:50→05:06)
[2019-04-10] MEDS: hydrOXYzine pamoate 25 MG CAPSULE PO ×3 (00:53→20:17)
--- NOTE | 2019-04-10 02:51 | PC.NURSE ---
Addendum entered and electronically signed by Jeannie Peterson R.N. 04/10/19 06:39: Pt has been in a lot of back pain and concerned about going home. Pain at times has been 8/10. Pt has O2 Sats 91. IS continued to be encouraged and deep breathing. Original Note: Pt is AxOx3, VSS Pulse Tachy at 115, lung sounds clear bilaterally. CMS is intact. Dressing is clean/dry and intact w/ some old shadowing. Pt has been in pain and in need of 10mg of Oxy Q3. Pt has SCD's applied and has been encouraged to use Incentive Spirometer. She is up w/ FWW voiding in the bathroom. She is wearing CPAP for sleep.
[2019-04-10 03:30] VITALS: BP 150/84; PULSE 120; RESP 16; TEMP 37.2; O2SAT 92
[2019-04-10] MEDS: LEVOTHYROXINE 50 MCG TABLET PO (05:20)
[2019-04-10] MEDS: LIOTHYRONINE 25 MCG TABLET PO (05:20)
--- NOTE | 2019-04-10 07:41 | PM.PNPO.1 ---
Subjective Date Patient Seen: 04/10/19 Time Patient Seen: 07:41 Interval history: Patient is POD#2 s/p TLIF. She continues to have severe pain overnight. She was able to mobilize with PT in the joe. Urinary catheter removed and she has voided. No chest pain or shortness of breath. Exam Vital Signs (past 8 hours): - 04/10/19 03:30 Temperature 98.9 F Pulse Rate 120 H Respiratory Rate 16 Blood Pressure 150/84 H Pulse Oximetry 92 Oxygen Delivery Method CPAP Oxygen Flow Rate 4 Narrative Exam Narrative: 68 year old female resting in bed in no acute distress. Alert and oriented. Dressing in place is intact with small area of shadow drainage. Sensation to light touch intact in distal extremities. Able to dorsiflex/plantar flex the feet. Calves are soft, compressible. Objective Labs Result Diagrams: 04/09/19 05:30 04/09/19 05:30 Labs: Laboratory Results - last 24 hr 04/09/19 05:30 Sodium 138 Potassium 4.0 Chloride 105 Carbon Dioxide 29 BUN 10 Creatinine 0.40 L Estimated GFR > 60.0 BUN/Creatinine Ratio 25.0 H Glucose 111 H Calcium 8.5 Total Bilirubin 0.4 AST 41 H ALT 34 Alkaline Phosphatase 50 Total Protein 5.2 L Albumin 3.0 L Globulin 2.2 Albumin/Globulin Ratio 1.4 Assessment & Plan Post-op Postoperative Procedures Operation Date: 04/08/19 12:15 Actual Procedures Side Surgeon p L4-5,L5-S1 TLIF w/posterior instrumentation Alonso Zambrano MD Goals for today include better pain control. Dilaudid 4mg Q3hrs added for severe pain. Continue Vistaril PRN. Continue to mobilize with PT/OT today. She has additional help at home starting tomorrow, possible d/c to home tomorrow pending pain control. Quality VTE Deep Vein Thrombosis/Pulmonary Embolism Present on Admission: No
[2019-04-10] MEDS: BUDESONIDE 3 MG CAP PO (08:22)
[2019-04-10] MEDS: PANTOPRAZOLE 40 MG TABLET PO ×2 (08:22→20:10)
[2019-04-10] MEDS: DOCUSATE 100 MG CAPSULE PO ×2 (08:22→20:09)
[2019-04-10] MEDS: GABAPENTIN 300 MG CAPSULE 900 MG PO (08:28)
[2019-04-10 08:30] VITALS: BP 147/78; PULSE 123; RESP 18; TEMP 37.6; O2SAT 100
[2019-04-10] MEDS: HYDROMORPHONE 2 MG TABLET 4 MG PO ×2 (08:30→15:59)
[2019-04-10] MEDS: SODIUM CHLORIDE 0.9% FLUSH 10 ML IV ×2 (09:49→20:09)
--- NOTE | 2019-04-10 09:56 | OT.IP.TRT ---
Current Diagnoses Other spondylosis with radiculopathy, lumbosacral region (04/08/19) Spinal stenosis, lumbar region without neurogenic claudication (04/08/19) Postlaminectomy syndrome, not elsewhere classified (04/08/19) Surgery Performed Operation Date: 04/08/19 12:15 Actual Procedures p L4-5,L5-S1 TLIF w/posterior instrumentation - Alonso Zambrano MD Occupational Therapy Treatment Note M2 OT-IP Current Condition Start: 04/09/19 14:23 Freq: Status: Active Protocol: Document 04/09/19 14:25 CCC (Rec: 04/09/19 14:49 [facility] [email or web address]) Occupational Therapy Current Condition Current Condition Evaluation Date 04/09/19 Treatment Diagnosis L4-5, L5-S1 lumbar spinal stenosis Diagnosis Onset Date 04/08/19 Post Operative Precautions Lumbar Precautions Log Roll No Twisting Limit Bending Lifting Restriction of 10 lbs Gait Belt above Incisional Area Weight Bearing Status Weight Bearing Status Weight Bear as Tolerated M3 OT- IP Subjective and Pain Start: 04/09/19 14:23 Freq: Status: Active Protocol: Document 04/10/19 09:56 PJM (Rec: 04/10/19 16:51 PJM [email or web address]) OT- Subjective Occupational Therapy Visit Type Type Treatment Note Visit Start Time 08:58 Visit Stop Time 09:56 Total Visit Minutes 58 Notes here for education this session. Occupational Therapy Visit Comments Patient Comments They are going to try a new medicine today to control my pain better. It really hurts. Patient/Caregiver Goals to go home OT Pain Assessment Pain When Pain Assessed After Treatment Pain Present Pain Present Pain Reported Location Lower Back Intensity 7 Scale Used Numeric (1 - 10) Description Aching Acute Sharp Pain Behaviors Facial Grimacing Guarding Wincing Management Techniques Apply Cold Distraction Re-positioning Timing of Activity with Medications M4 OT- IP ADL's Start: 04/09/19 14:23 Freq: Status: Active Protocol: Document 04/10/19 09:56 PJM (Rec: 04/10/19 16:51 PJM [email or web address]) OT ADL-Grooming General Evaluation Grooming Ability Standby Assistance Areas Needing Assistance Combing/Brushing Hair Face Washing Comments OT Grooming Comments pt stood at sink for total of 5 min with no loss of balacne noted; provided education re: body mechanics OT ADL-Oral Care General Eval Oral Care Ability Standby Assistance Comments Oral Care Comments provided education re: body mechanics OT ADL-Toileting General Evaluation Toileting Ability Minimal Assistance Areas Needing Assistance Manage Clothing Perform Perineal Hygiene Comments OT Toileting Comments pt needing assist to get toilet paper after standing; provided education re: body mechanics for renetta care Document 04/10/19 09:56 PJM (Rec: 04/10/19 16:51 PJ [email or web address]) OT- Bed Mobility Assessment Rolling Type of Rolling Log Rolling Level of Assistance Standby Assistance 1 Person Assistance Supine to Sit Supine to Sit Assist Contact Guard Assistance Scooting Scooting to Edge of Bed Standby Assistance 1 Person Assistance OT-Transfer Assessment Sit to and From Stand Sit to and from Stand Contact Guard Assistance 1 Person Assistance Transfers Transfer Ability Contact Guard Assistance 1 Person Assistance Technique Transfer Destination Chair Toilet Transfer Technique Stand Step Pivot Devices Transfer Assistive Devices Gait Belt Front Wheeled Walker Comments Mobility Comments pt performs very slowly and needs max verbal cues not to twist during log rolling OT- Gait Assessment Gait Gait Assistance Required: Contact Guard Assist Distance (Feet) 30 Assistive Devices Assistive Device Gait Belt Front Wheeled Walker Comments Gait Ability Comments pt walked around bed to sink and into bathroom OT- Balance Assessment Sitting Balance and Reactions Static Sitting Balance Ability Good Standing Balance and Reactions Static Standing Balance Ability Good Dynamic Standing Balance Ability Fair Document 04/10/19 09:56 PJM (Rec: 04/10/19 16:51 PJ [email or web address]) OT Summary Assessment and Plan Potential Rehabilitation Potential Good Summary OT Impairments Pain Balance Functional Mobility Dressing Toileting Bathing Toilet Transfers Shower Transfers Progress Progressing Toward Goals Assessment Pt making daily progress but high pain level remain primary limiting factor. Pt needs max verbal cues for log rolling to avoid twisting. Pt performs all tasks slowly and carefully, but once out of bed, she verbalizes and demonstrates understanding of lumbar spine precautions. Supportive,capable will provide 24 hr assist at d/c. Plan 1 additional OT visit for further education re: showering and lower body dressing with adaptive equipment. Goals Grooming Goal Independent Dressing Goal Contact Guard Assistance Toileting Goal Standby Assistance Bathing Goal Contact Guard Assistance Toilet Transfer Goal Standby Assistance Shower Transfer Goal Contact Guard Assistance Patient/Caregiver Education Goal Caregiver Independent Assisting Patient Days to Meet Goals 2 Frequency of Treatment Frequency Of Treatment Once a Day Treatment Plan OT Treatment Plan ADL Training Functional Cognition Training Functional Mobility Patient/Family Education Discharge Planning Discharge Recommendations OT Discharge Recommendations Home with Assistance Home Equipment Needs pt has BSC for use over toilet , to obtain shower chair
--- NOTE | 2019-04-10 10:30 | PT.IPTN ---
Current Diagnoses Other spondylosis with radiculopathy, lumbosacral region (04/08/19) Spinal stenosis, lumbar region without neurogenic claudication (04/08/19) Postlaminectomy syndrome, not elsewhere classified (04/08/19) Surgery Performed Operation Date: 04/08/19 12:15 Actual Procedures p L4-5,L5-S1 TLIF w/posterior instrumentation - Alonso Zambrano MD Physical Therapy Treatment Note M2 PT-IP Current Condition Start: 04/09/19 11:40 Freq: NEEDED Status: Active Protocol: Document 04/09/19 10:02 AB (Rec: 04/09/19 11:50 AB [id number]) Physical Therapy Current Condition Current Condition Evaluation Date 04/09/19 Treatment Diagnosis s/p L4-S1 fusion/lami; difficulty in walking Onset Date 04/08/19 Precautions Lumbar Precautions Log Roll No Twisting Limit Bending Lifting Restriction of 10 lbs Gait Belt above Incisional Area M3 PT-IP Subjective Start: 04/09/19 11:40 Freq: NEEDED Status: Active Protocol: Document 04/10/19 10:30 GGD (Rec: 04/10/19 14:17 GGD [email or web address]) Subjective Physical Therapy Visit Type Type Treatment Note Visit Start Time 10:05 Visit Stop Time 10:30 Total Visit Minutes 25 Number of HANDKERCHIEF PRESSER Visits 1 Physical Therapy Visit Comments Patient Comments Pt willing to work with therapy. Therapy Pain Assessment Pain When Pain Assessed At Rest Pain Present Pain Present Pain Reported Location Lower Back Intensity 5 Scale Used Numeric (1 - 10) M4 PT-IP Mobility and Gait Start: 04/09/19 11:40 Freq: NEEDED Status: Active Protocol: Document 04/10/19 10:30 GGD (Rec: 04/10/19 14:17 GGD [email or web address]) PT-Bed Mobility Assessment Rolling Type of Rolling Log Rolling Level of Assist Minimal Assistance Supine to Sit Supine to Sit Minimal Assistance 1 Person Assistance Sit to Supine Sit to Supine Contact Guard Assistance 1 Person Assistance Scooting Scooting to Edge of Bed Standby Assistance PT-Transfer Assessment Sit to and From Stand Sit to and from Stand Contact Guard Assistance 1 Person Assistance Use of Upper Extremities Equipment Transfer Assistive Device Gait Belt Front Wheeled Walker Transfers Transfer Destination Bed Transfer Ability Level of Assist Contact Guard Assistance 1 Person Assistance Use of Upper Extremities Gait Assessment Gait Gait Assistance Required: Contact Guard Assist Distance (Feet) 75 Able to Maintain Weight Bearing Status Yes During Gait Assistive Devices Assistive Device Gait Belt Front Wheeled Walker Orthotic/Prosthetic Devices or Brace: No Gait Deviations General Gait Pattern Antalgic Decreased Stride Length Decreased Feet Clearance Factors Limiting Gait Function Factors Limiting Gait Function Decreased Activity Tolerance Decreased Sensation Decreased Strength Limited Range of Motion Pain Poor Balance Poor Safety Awareness M5 PT-IP Objective Assessments Start: 04/09/19 11:40 Freq: NEEDED Status: Active Protocol: Document 04/09/19 10:02 AB (Rec: 04/09/19 11:50 AB [id number]) Orientation Orientation/Cognition Level of Alertness Alert Orientation Name Place Situation Safety Awareness Decreased Safety Awareness Memory Description Short Term Impaired Gross Range of Motion Lower Extremity ROM Assessment Within Functional Limits Strength Lower Extremity Strength Assessment Bilaterally Impaired Comments Strength Comments RLE 4-/5 LLE: 3+/5 Coordination Assessment Gross Coordination Gross Coordination WNL Sensation Assessment Sensation Gross Sensation Left LE Impaired Light Touch Impaired Proprioception (Position) Impaired Sensation Description Numbness Tingling Muscle Tone Muscle Tone WNL Yes M6 PT-IP Treatment Start: 04/09/19 11:40 Freq: NEEDED Status: Active Protocol: Document 04/10/19 10:30 GGD (Rec: 04/10/19 14:17 GGD [email or web address]) Physical Therapy Treatment Exercises Exercises Ankle Pumps Education Education Provided Precautions Other Treatments Other Treatment Performed direct care counselor training for bed mobility. M7 PT-IP Assessment and Plan Start: 04/09/19 11:40 Freq: NEEDED Status: Active Protocol: Document 04/10/19 10:30 GGD (Rec: 04/10/19 14:17 GGD [email or web address]) PT Summary Assessment and Plan Summary Assessment Summary Pt improving slowly with mobility. She needed assist for bed mobility and cues. She had increase in C/O pain with mobility. She will need stair training and caregiver training before D/C home. Frequency of Treatment Frequency Of Treatment Twice a Day Treatment Plan Physical Therapy Treatment Plan Bed Mobility Training Transfer Training Gait Training Therapeutic Exercise Balance Retraining Post Op Education Discharge Planning Hot or Cold Pack Neuromuscular Re-ed Coordination Retraining Manual Therapy Recommendations To Nursing Amount of Assist Needed 1 Person Assist Discharge Recommendations PT Discharge Recommendations Home with Assistance
--- NOTE | 2019-04-10 11:35 | PC.NURSE ---
Addendum entered by Jolie Mayo R.N. 04/10/19 14:42: Pts sats dropped to 84%, pt asymptomatic. RT set up o2 to be delivered through patients cpap. She was given 4mg of po dilaudid and this helped her pain significantly. She is now drowsy, will not medicate pt until she is more awake. She is totally A&Ox3 but sleepy. in room and visiting. He has been here for most of the day. Pt denies pain at this time. Original Note: Pt having some pain issues. Pain medication changed to Dilaudid 4mg every 4 hours. Given and she states that she does feel better. Heart rate 112 and higher throughout stay. PA notified and pt is not having any symptoms with this. Dressing is cdi with small amount of old drainage. Pt sitting up in chair and comfortable. Resting comfortably.
[2019-04-10 12:39] VITALS: BP 128/82; PULSE 111; RESP 18; TEMP 37.7; O2SAT 92
--- NOTE | 2019-04-10 12:43 | CM.DPC ---
DCP Cont: Met with patient and family member. Introduced self and role. Patient pleasant demeanor. She stated, she has still been having some pain issues, and the surgery was more difficult than what she expected. She stated that she does have some family coming in to help her at home. She has been independent. Stated that she had recently gone on a trip to [place], and when she had come home, her back pain was severe, and had elected to have surgery. She is continuing to work with physical therapy. P: DCP to continue to follow and be available for any resources that patient may need. Patient could potentially be discharged tomorrow. Vivian Cantor RN/Project Finance Analyst
[2019-04-10 15:31] VITALS: BP 111/67; PULSE 113; RESP 18; TEMP 37; O2SAT 93
--- NOTE | 2019-04-10 15:35 | PT.IPTN ---
Current Diagnoses Other spondylosis with radiculopathy, lumbosacral region (04/08/19) Spinal stenosis, lumbar region without neurogenic claudication (04/08/19) Postlaminectomy syndrome, not elsewhere classified (04/08/19) Surgery Performed Operation Date: 04/08/19 12:15 Actual Procedures p L4-5,L5-S1 TLIF w/posterior instrumentation - Alonso Zambrano MD Physical Therapy Treatment Note M2 PT-IP Current Condition Start: 04/09/19 11:40 Freq: NEEDED Status: Active Protocol: Document 04/09/19 10:02 AB (Rec: 04/09/19 11:50 AB [id number]) Physical Therapy Current Condition Current Condition Evaluation Date 04/09/19 Treatment Diagnosis s/p L4-S1 fusion/lami; difficulty in walking Onset Date 04/08/19 Precautions Lumbar Precautions Log Roll No Twisting Limit Bending Lifting Restriction of 10 lbs Gait Belt above Incisional Area M3 PT-IP Subjective Start: 04/09/19 11:40 Freq: NEEDED Status: Active Protocol: Document 04/10/19 15:35 AB (Rec: 04/10/19 18:03 AB [id number]) Subjective Physical Therapy Visit Type Type Treatment Note Visit Start Time 15:35 Visit Stop Time 16:48 Total Visit Minutes 73 Number of LAYOUT WORKER Visits 0 Physical Therapy Visit Comments Patient Comments pt agreeable to do PT; spouse present for caregiver training Therapy Pain Assessment Pain When Pain Assessed At Rest Pain Present Pain Present Pain Reported Location Lower Back Intensity 6 Scale Used Numeric (1 - 10) Pain Behaviors Guarding Pain Management Techniques Distraction Re-positioning Timing of Activity with Medications M4 PT-IP Mobility and Gait Start: 04/09/19 11:40 Freq: NEEDED Status: Active Protocol: Document 04/10/19 15:35 AB (Rec: 04/10/19 18:03 AB [id number]) PT-Bed Mobility Assessment Rolling Type of Rolling Log Rolling Level of Assist Minimal Assistance Supine to Sit Supine to Sit Minimal Assistance 1 Person Assistance Sit to Supine Sit to Supine Minimal Assistance 1 Person Assistance PT-Transfer Assessment Sit to and From Stand Sit to and from Stand Moderate Assistance 1 Person Assistance Use of Upper Extremities Equipment Transfer Assistive Device Gait Belt Front Wheeled Walker Orthotic/Prosthetic Devices or Brace: No Transfers Transfer Destination Chair Toilet Transfer Technique pt ambulated using FWW Transfer Ability Level of Assist Contact Guard Assistance Minimal Assistance 1 Person Assistance Use of Upper Extremities Comments Mobility Comments BP supine: 123/74 WI: 111 caregiver training conducted. educated spouse on how to use safety belt, how to assist pt with bed mobility, sit <> stand, transfers and ambulation using FWW. spouse needs cues on how to assist pt and reminders to instruct pt appropriately during mobility. Pt completed bed mobility sit<>supine x 6 reps. Spouse needs further caregiver training to be able to assist pt safely. pt completed sit <> stand from EOB x 5 reps requiring min to mod A and max cues. pt tends to rely a lot on BUE to get up and forgets to push and straighten BLE. spouse was able to assist pt but not able to instruct pt appropriately. pt completed sit <>stand from the chair x 5 reps requiring min A and cues . Spouse able to somewhat instruct pt but not consistent . pt requested to use the toilet . spouse ambulated pt to the toilet using FWW ~ 20 ft. pt requires mod from PT for controlled descent to the toilet and max A for sit to stand from the toilet using grab bars for assist. informed pt and spouse that pt will need a RTS with handles or a bedside commode for safe use of the toilet. pt stated that they have a bedside commode in the storage. spouse will check. pt ambulated out of the toilet towards the sink using FWW CGA to min A and cues. pt was able to maintain standing leaning against the counter CGA while completing handwashing. pt sat back on the chair. Gait Assessment Gait Gait Assistance Required: Contact Guard Assist Minimum Assistance Distance (Feet) 20 Able to Maintain Weight Bearing Status Yes During Gait Assistive Devices Assistive Device Gait Belt Front Wheeled Walker Orthotic/Prosthetic Devices or Brace: No Gait Deviations General Gait Pattern Antalgic Decreased Stride Length Decreased Feet Clearance Factors Limiting Gait Function Factors Limiting Gait Function Decreased Activity Tolerance Decreased Strength Difficulty Following Directions Limited Range of Motion Pain Poor Balance Poor Safety Awareness Stair Climbing Assessment Evaluation Level of Assist On Stairs Moderate Assistance 1 Person Assistance Devices Stair Climbing Assistive Devices Front Wheel Walker Technique/Endurance Stair Climbing Direction Ascend and Descend Stair Climbing Technique Step to Step Number of Steps Climbed 1 Query Text: Stair Climbing Set # Repetitions (reps) 1 Comments Stair Climbing Comments pt completed up/down step stool mod A using FWW for support. pt c/o dizziness afterwards. BP: 138/69 but WI is 136 assisted pt back to bed. spouse assisted pt with transfers and bed mobility. spouse continues to require further training. M5 PT-IP Objective Assessments Start: 04/09/19 11:40 Freq: NEEDED Status: Active Protocol: Document 04/09/19 10:02 AB (Rec: 04/09/19 11:50 AB [id number]) Orientation Orientation/Cognition Level of Alertness Alert Orientation Name Place Situation Safety Awareness Decreased Safety Awareness Memory Description Short Term Impaired Gross Range of Motion Lower Extremity ROM Assessment Within Functional Limits Strength Lower Extremity Strength Assessment Bilaterally Impaired Comments Strength Comments RLE 4-/5 LLE: 3+/5 Coordination Assessment Gross Coordination Gross Coordination WNL Sensation Assessment Sensation Gross Sensation Left LE Impaired Light Touch Impaired Proprioception (Position) Impaired Sensation Description Numbness Tingling Muscle Tone Muscle Tone WNL Yes M6 PT-IP Treatment Start: 04/09/19 11:40 Freq: NEEDED Status: Active Protocol: Document 04/10/19 15:35 AB (Rec: 04/10/19 18:03 AB [id number]) Physical Therapy Treatment Education Education Provided Safety M7 PT-IP Assessment and Plan Start: 04/09/19 11:40 Freq: NEEDED Status: Active Protocol: Document 04/10/19 15:35 AB (Rec: 04/10/19 18:03 AB [id number]) PT Summary Assessment and Plan Potential Rehabilitation Potential Good Summary Impairments Pain ROM Strength Balance Coordination Sensation Cognition Bed Mobility Transfers Gait Activity Tolerance Progress Towards Goals Slow Progress due to Pain Slow Progress due to Medical Issues Slow Progress due to Activity Tolerance Assessment Summary caregiver training conducted and spouse will require further caregiver training to safely assist pt. stair climbing training also needs to be conducted prior to d/c. d/c plan depending if spouse will be able to safely assist pt and also if pt is safe with stair climbing. will continue to assess. Pt at this time may require SNF but pt does not want to go to SNF. pt will need homehealth PT if pt goes home to improve overall strength and functional mobility. Goals Bed Mobility Goal Independent Transfer Goal Standby Assistance Front Wheeled Walker Gait Goal Standby Assistance Front Wheel Walker Gait Distance 150 Other Goals up/down 2 steps without rails: use SPC/EMBEDDED SYSTEMS ENGINEER CGA Days to Meet Goals 5 Frequency of Treatment Frequency Of Treatment Twice a Day Treatment Plan Physical Therapy Treatment Plan Bed Mobility Training Transfer Training Gait Training Therapeutic Exercise Balance Retraining Post Op Education Discharge Planning Hot or Cold Pack Neuromuscular Re-ed Coordination Retraining Manual Therapy Recommendations To Nursing Amount of Assist Needed 1 Person Assist Discharge Recommendations PT Discharge Recommendations Home with 22/05 Assist Home Health SNF Rehab Equipment Needed for Home Before FWW: spouse will purchase one Discharge
[2019-04-10] MEDS: OXYBUTYNIN 5 MG ER TAB 10 MG PO (17:57)
--- NOTE | 2019-04-10 18:04 | PC.NURSE ---
Pt drowsy but easily awakened. PT in to work with Pt, medicated with dilaudid 2mg per pt request. 1PA FWW, up to BRP to void. Dr Zambrano in to see pt, informed probable DC tomorrow, answered pt's concerns. LFA SL. 93% 2L nc, LS clear. BT+ denies nausea. low back drsg with sm old shadoe drainage to lower right side, otherwise CDI. Bed alarm on for safety. Own CPAP for sleep. Call light in reach.
[2019-04-10 19:45] VITALS: BP 139/76; PULSE 122; RESP 18; TEMP 37.1; O2SAT 92
[2019-04-10] MEDS: GABAPENTIN 600 MG TABLET 1200 MG PO (20:09)
[2019-04-10] MEDS: SENNOSIDES 8.6 MG TABLET 17.2 MG PO (20:10)
[2019-04-10 23:25] VITALS: BP 127/60; PULSE 113; RESP 16; TEMP 36.9; O2SAT 94
[2019-04-11] VITALS (10 sets, daily range): BP systolic 88–140; BP diastolic 43–80; PULSE 107–124; RESP 16–18; TEMP 36.5–36.9; O2SAT 93–96
[2019-04-11] MEDS: HYDROMORPHONE 2 MG TABLET 4 MG PO ×6 (00:09→21:49)
[2019-04-11] MEDS: hydrOXYzine pamoate 25 MG CAPSULE PO (04:18)
[2019-04-11] MEDS: LIOTHYRONINE 25 MCG TABLET PO (06:01)
[2019-04-11] MEDS: LEVOTHYROXINE 50 MCG TABLET PO (06:01)
--- NOTE | 2019-04-11 08:07 | PM.DS.1 ---
History of Present Illness Date Patient Seen: 04/11/19 Time Patient Seen: 08:07 Chief complaint: [id number] Narrative: Hospital day 4, postop day 3 following L4-5, L5-S1 TLIF, cage, ICBG, posterior screw fixation. She has remained stable postoperatively. Has had some mild tachycardia but not symptomatic. She is taking Dilaudid 2-4 mg with good pain control. Oxycodone was not helpful. She states that she has had some improvement in her left leg weakness since surgery. She has worked with PT but they think her needs more training prior to going home. Discharge Providers Date of admission: 04/08/19 10:09 Discharge Date: 04/11/19 Primary care physician: Thiaog Noble ND Consults: 04/08/19 10:55 Consult to Respiratory Therapy Evaluate & Treat Comment: Physician Instructions: Evaluate and treat 04/08/19 17:35 Consult to Occupational Therapy Evaluate & Treat Comment: Physician Instructions: Evaluate and treat Consult to Physical Therapy Evaluate & Treat Comment: Physician Instructions: Evaluate and Treat Discharge provider: Alex Moralez PA-C Summary Discharge Diagnosis: Status post L4-5, L5-S1 TLIF, cage, ICBG, posterior screw fixation Hospital Course: Patient brought to hospital on 04/08/2019 for above noted surgery. She remained stable postoperatively. Progressed with physical therapy. Pain controlled with Dilaudid. Patient ready for discharge home on postop day 3. Status at Discharge Cognitive/behavioral status at discharge: oriented Functional status at discharge: uses cane/walker Overall status at discharge: patient is progressing back to baseline Time Spent with Patient Less than 30 minutes Exam Vital Signs (past 8 hours): - 04/11/19 03:30 04/11/19 04:13 Temperature 98.0 F 97.8 F Pulse Rate 112 H 113 H Respiratory Rate 16 18 Blood Pressure 116/62 104/62 Pulse Oximetry 96 96 Oxygen Delivery Method Nasal Cannula Oxygen Flow Rate 2 Narrative Exam Narrative: Alert, oriented no acute distress resting in bed. Back. Postoperative dressing notes bilateral areas of shadowing otherwise dry without signs of infection or inflammation. Legs. No calf pain or swelling. Pulses symmetrical. Good sensation to lower legs except decreased sensation to the lateral left calf. Good strength on foot dorsiflexion plantar flexion bilateral. Patient able to lift both legs. Objective Labs Result Diagrams: 04/09/19 05:30 04/09/19 05:30 Discharge Plan Discharge Plan Patient Disposition: Home Discharge comment: Discharge home after cleared by PT. Carly dressing to lumbar incision. Discharge Med Rec/Prescriptions Prescriptions: New hydromorphone 2 mg Tablet 4 mg PO Q4HR PRN (Reason: Pain, Severe (7-10)) Qty: 30 RF: 0 hydroxyzine pamoate 25 mg Capsule 25 mg PO Q4HR PRN (Reason: Nausea And Vomiting) Qty: 30 RF: 0 Continued budesonide 3 MG capsule,delayed,extend.release 3 mg PO QDAY Qty: 0 RF: 0 gabapentin [Neurontin] 800 MG tablet 2,100 mg PO SEEINSTR Qty: 0 RF: 0 liothyronine [Cytomel] 25 MCG tablet 25 mcg PO QDAY Qty: 0 RF: 0 Restasis 1 EACH dropperette 1 drp OPHTH BID Qty: 0 RF: 0 alpha lipoic acid 600 MG capsule 600 mg PO BID Qty: 0 RF: 0 fexofenadine 180 MG tablet 180 mg PO DAILY Qty: 0 RF: 0 aspirin 81 MG tablet,delayed release (DR/EC) 81 mg PO BEDTIME Qty: 0 RF: 0 melatonin 10 MG capsule 10 mg PO HS Qty: 0 RF: 0 acetaminophen 650 MG tablet extended release 500 mg PO Q4H Qty: 0 RF: 0 docusate sodium [Colace] 100 MG capsule 100 mg PO BIDP Qty: 0 RF: 0 vitamin B complex [B Complex-Vitamin B12] 1 EACH tablet 1 tab PO QDAY Qty: 0 RF: 0 omega 1-kxf-dom-fish oil [Fish Oil] 1,000 MG capsule 1,400 mg PO QPM Qty: 0 RF: 0 cholecalciferol (vitamin D3) [Vitamin D3] 2,000 UNIT tablet 1 tab PO QDAY Qty: 0 RF: 0 levothyroxine [Synthroid] 25 mcg tablet 0.05 mcg PO QAM Qty: 0 RF: 0 alendronate 70 mg Tablet 70 mg PO QWEEK RF: 0 ondansetron 8 mg Tablet,Disintegrating 8 mg PO TID PRN (Reason: Nausea) RF: 0 pantoprazole 40 mg Tablet,Delayed Release (Dr/Ec) 40 mg PO BID RF: 0 diphenhydramine-acetaminophen [Tylenol PM Extra Strength] 25-500 mg Tablet 2 tab PO BEDTIME RF: 0 multivitamin Capsule 1 cap PO DAILY RF: 0 oxybutynin chloride [Ditropan XL] 10 mg tablet extended release 24hr 10 mg PO QPM RF: 0 Discontinued oxycodone 5 mg Capsule 5 mg PO Q4H RF: 0 Follow up/Referrals: Thiago Noble ARNP [Primary Care Provider] - Provider Discharge Instructions Diet: Diet as Tolerated Activity: Ambulate as tolerated. Use walker as needed. No excessive bending or twisting of lumbar spine. No lifting or carrying more than 5-10 lb. Skin/Wound/Dressing Care Report to your healthcare provider any signs of infection, such as:: chills, fever, night sweats, increased pain, unusual drainage and unusual redness Dressing: Keep CovRsite dressing in place until postop visit. Visit Report/Discharge Packet Instructions: DI for Transforaminal Lumbar Interbody Fusion Discharge Data Primary Care Provider: Thiago Noble Attending Provider: Alonso Zambrano Admit Date/Time: 04/08/19 10:09 Quality VTE Deep Vein Thrombosis/Pulmonary Embolism Present on Admission: No
[2019-04-11] MEDS: BUDESONIDE 3 MG CAP PO (08:34)
[2019-04-11] MEDS: DOCUSATE 100 MG CAPSULE PO ×2 (08:34→21:53)
[2019-04-11] MEDS: PANTOPRAZOLE 40 MG TABLET PO (08:35)
[2019-04-11] MEDS: GABAPENTIN 300 MG CAPSULE 900 MG PO (08:37)
[2019-04-11] MEDS: Cyclosporine [Restasis] 1 DROP 1 EACH OPHTH (08:38)
[2019-04-11] MEDS: SODIUM CHLORIDE 0.9% FLUSH 10 ML IV ×2 (08:42→21:57)
--- NOTE | 2019-04-11 09:30 | PC.NURSE ---
Addendum entered by Kavita Ramos R.N. 04/11/19 14:56: MS/PAIN/ - after fluid bolus completed, assisted pt to dangle position, denies dizziness, ambul to br w/void 425ml concentrated urine, does moan with mobilization and return bed, added the 2nd 2mg dilaudid dose. Addendum entered by Kavita Ramos R.N. 04/11/19 13:58: PAIN - kyrie bites for lunch, incr back discomfort given 2mg po dilaudid for pain 6 on scale 0/10 as pt low bps, fluid bolus in progress. Addendum entered by Kavita Ramos R.N. 04/11/19 12:51: VITALS/INTEG - while pt showering with OT, had onset of spots in vision, was assisted back bed, lying l side bp 88/43, HR 124, repeat bps at 5 minute intervals 103/52, hr 122, 112/62, hr 123, no loc, reported symptoms and vitals to ortho office, spoke triage nurse Alice who rec'd order for 1L fluid bolus NS from Jignesh DILL, also she would inform /DIANE Peraza who are here at [facility] in case at 1245 until about 1600 of this episode to have them check on pt and determine if dc home, new iv site started and bolus. Addendum entered by Kavita Ramos R.N. 04/11/19 11:06: MS - after ambul and stair practice with phys therapy and spouse present, pt declines shower now and prefers to rest, will take shower later after lunch. Original Note: AM NOTE - pt is alert, visiting friend at bedside and kyrie breakfast, states back discomfort 4 on scale 0/10, hx numbness later lle prior to surg RKaushik PAC in this am and will dc home after stair practice with spouse, noted her recent hx tachy, enc po, no new order, discussed constipation and pt has hx colitis and at times loose stools, declined mom, did take stool softener and prune juice juan guillermo drink, has own cpap for night, ra 96% now, discussed pain mgt and pt will shower with OT this am, hx some lightheadedness yesterday with the 4mg dilaudid when up, given 2mg po dilaudid with breakfast and will reeval pain level after mobilization.
--- NOTE | 2019-04-11 12:02 | PT.IPTN ---
Addendum entered and electronically signed by Leandro Lord PT 04/12/19 08:11: correction for d/c planning Original Note: Current Diagnoses Other spondylosis with radiculopathy, lumbosacral region (04/08/19) Spinal stenosis, lumbar region without neurogenic claudication (04/08/19) Postlaminectomy syndrome, not elsewhere classified (04/08/19) Surgery Performed Operation Date: 04/08/19 12:15 Actual Procedures p L4-5,L5-S1 TLIF w/posterior instrumentation - Alonso Zambrano MD Physical Therapy Treatment Note M2 PT-IP Current Condition Start: 04/09/19 11:40 Freq: NEEDED Status: Active Protocol: Document 04/09/19 10:02 AB (Rec: 04/09/19 11:50 AB [id number]) Physical Therapy Current Condition Current Condition Evaluation Date 04/09/19 Treatment Diagnosis s/p L4-S1 fusion/lami; difficulty in walking Onset Date 04/08/19 Precautions Lumbar Precautions Log Roll No Twisting Limit Bending Lifting Restriction of 10 lbs Gait Belt above Incisional Area M3 PT-IP Subjective Start: 04/09/19 11:40 Freq: NEEDED Status: Active Protocol: Document 04/11/19 09:30 HH (Rec: 04/11/19 12:02 [email or web address]) Subjective Physical Therapy Visit Type Type Treatment Note Visit Start Time 09:30 Visit Stop Time 10:15 Total Visit Minutes 45 Number of WOOL CLEANER Visits 0 Physical Therapy Visit Comments Patient Comments pt agreeable to do PT; spouse present for caregiver training Therapy Pain Assessment Pain When Pain Assessed At Rest Pain Present Pain Present Pain Reported Location Lower Back Intensity 5 Scale Used Numeric (1 - 10) Pain Behaviors Calling Out Facial Grimacing Guarding Pain Management Techniques Distraction Re-positioning Timing of Activity with Medications M4 PT-IP Mobility and Gait Start: 04/09/19 11:40 Freq: NEEDED Status: Active Protocol: Document 04/11/19 09:30 HH (Rec: 04/11/19 12:02 [email or web address]) PT-Bed Mobility Assessment Rolling Type of Rolling Log Rolling Level of Assist Contact Guard Assistance Supine to Sit Supine to Sit Contact Guard Assistance Minimal Assistance 1 Person Assistance Sit to Supine Sit to Supine Contact Guard Assistance Minimal Assistance 1 Person Assistance Scooting Scooting to Edge of Bed Standby Assistance PT-Transfer Assessment Sit to and From Stand Sit to and from Stand Contact Guard Assistance Minimal Assistance Use of Upper Extremities Equipment Transfer Assistive Device Gait Belt Front Wheeled Walker Orthotic/Prosthetic Devices or Brace: No Transfers Transfer Destination Bed Chair Wheelchair Transfer Technique pt ambulated using FWW Transfer Ability Level of Assist Contact Guard Assistance Minimal Assistance 1 Person Assistance Use of Upper Extremities Comments Mobility Comments BP pre and post session : 120s /70s HR 105-130. Video taken with spouse's phone today for transfer techniques and safety instruction. Guided spouse to assist pt for supine <>sit x8 ; sit<> stand with gait belt and FWW x 5. Spouse needed cues for hand placements on pt during transfers and instructed him to refer to his phone video for reminded if needed. Gait Assessment Gait Gait Assistance Required: Contact Guard Assist 1 Person Assist Distance (Feet) 100 Able to Maintain Weight Bearing Status Yes During Gait Assistive Devices Assistive Device Gait Belt Front Wheeled Walker Orthotic/Prosthetic Devices or Brace: No Gait Deviations General Gait Pattern Antalgic Decreased Stride Length Decreased Feet Clearance Factors Limiting Gait Function Factors Limiting Gait Function Decreased Activity Tolerance Decreased Strength Difficulty Following Directions Limited Range of Motion Pain Poor Balance Poor Safety Awareness Comments Gait Comments guided spouse to amb with pt by holding on pt's gait belt. Instructed him to place gait belt above incisional area. Stair Climbing Assessment Evaluation Level of Assist On Stairs Contact Guard Assistance Minimal Assistance 1 Person Assistance Devices Stair Climbing Assistive Devices Front Wheel Walker Technique/Endurance Stair Climbing Direction Ascend and Descend Stair Climbing Technique Step to Step Number of Steps Climbed 1 Query Text: Stair Climbing Set # Repetitions (reps) 2 Comments Stair Climbing Comments used platform step today. Instructed spouse to assist pt on one side so pt could use wall for support during descend. M5 PT-IP Objective Assessments Start: 04/09/19 11:40 Freq: NEEDED Status: Active Protocol: Document 04/09/19 10:02 AB (Rec: 04/09/19 11:50 AB [id number]) Orientation Orientation/Cognition Level of Alertness Alert Orientation Name Place Situation Safety Awareness Decreased Safety Awareness Memory Description Short Term Impaired Gross Range of Motion Lower Extremity ROM Assessment Within Functional Limits Strength Lower Extremity Strength Assessment Bilaterally Impaired Comments Strength Comments RLE 4-/5 LLE: 3+/5 Coordination Assessment Gross Coordination Gross Coordination WNL Sensation Assessment Sensation Gross Sensation Left LE Impaired Light Touch Impaired Proprioception (Position) Impaired Sensation Description Numbness Tingling Muscle Tone Muscle Tone WNL Yes M6 PT-IP Treatment Start: 04/09/19 11:40 Freq: NEEDED Status: Active Protocol: Document 04/11/19 09:30 HH (Rec: 04/11/19 12:02 [email or web address]) Physical Therapy Treatment Education Education Provided Safety Other Treatments Other Treatment Performed post acute care nurse practitioner training for bed mobility, transfer and gait training. adjsutment for pt's new FWW M7 PT-IP Assessment and Plan Start: 04/09/19 11:40 Freq: NEEDED Status: Active Protocol: Document 04/11/19 09:30 HH (Rec: 04/11/19 12:02 HH [email or web address]) PT Summary Assessment and Plan Summary Impairments Pain ROM Strength Balance Coordination Sensation Cognition Bed Mobility Transfers Gait Activity Tolerance Progress Towards Goals Safe For Discharge Assessment Summary CG training conducted and spouse showed improved understanding and techniques for pt handling during transfers and bed mobility. Video taken for pt handling with spouse's phone for future reminder. Pt's VS remains stable today but she did c/o fatigue towards the end of session and requested to bed rest. Recommended pt to rest adequately prior to d/c home today. Pt also stated her cousin will stay with her for the next 4/5 days to assist. Frequency of Treatment Frequency Of Treatment Discharge Treatment Plan Physical Therapy Treatment Plan Bed Mobility Training Transfer Training Gait Training Therapeutic Exercise Balance Retraining Post Op Education Discharge Planning Hot or Cold Pack Neuromuscular Re-ed Coordination Retraining Manual Therapy Recommendations To Nursing Amount of Assist Needed 1 Person Assist Discharge Recommendations PT Discharge Recommendations Home with Assistance Home with / Assist
--- NOTE | 2019-04-11 12:28 | OT.IP.TRT ---
Current Diagnoses Other spondylosis with radiculopathy, lumbosacral region (04/08/19) Spinal stenosis, lumbar region without neurogenic claudication (04/08/19) Postlaminectomy syndrome, not elsewhere classified (04/08/19) Surgery Performed Operation Date: 04/08/19 12:15 Actual Procedures p L4-5,L5-S1 TLIF w/posterior instrumentation - Alonso Zambrano MD Occupational Therapy Treatment Note M2 OT-IP Current Condition Start: 04/09/19 14:23 Freq: Status: Active Protocol: Document 04/09/19 14:25 [facility] (Rec: 04/09/19 14:49 [facility] [id number]) Occupational Therapy Current Condition Current Condition Evaluation Date 04/09/19 Treatment Diagnosis L4-5, L5-S1 lumbar spinal stenosis Diagnosis Onset Date 04/08/19 Post Operative Precautions Lumbar Precautions Log Roll No Twisting Limit Bending Lifting Restriction of 10 lbs Gait Belt above Incisional Area Weight Bearing Status Weight Bearing Status Weight Bear as Tolerated M3 OT- IP Subjective and Pain Start: 04/09/19 14:23 Freq: Status: Active Protocol: Document 04/11/19 12:28 P[facility] (Rec: 04/11/19 16:11 PJ [email or web address]) OT- Subjective Occupational Therapy Visit Type Type Treatment Note Visit Start Time 11:14 Visit Stop Time 12:28 Total Visit Minutes 74 Notes Pt's here for education this session. Occupational Therapy Visit Comments Patient Comments I an seeing spots. I need to lay down right now. Patient/Caregiver Goals to have less pain and be able to go home OT Pain Assessment Pain When Pain Assessed After Treatment Pain Present Pain Present Pain Reported Location Lower Back Intensity 7 Scale Used Numeric (1 - 10) Description Aching Acute Pain Behaviors Facial Grimacing Guarding Wincing Management Techniques Distraction Re-positioning Timing of Activity with Medications M4 OT- IP ADL's Start: 04/09/19 14:23 Freq: Status: Active Protocol: Document 04/11/19 12:28 PJM (Rec: 04/11/19 16:11 PJ [email or web address]) OT [id number] General Evaluation Self-Feeding Ability Independent OT ADL-Oral Care General Eval Oral Care Ability Standby Assistance Areas of Assistance Brushing Teeth Devices Oral Care Devices Toothbrush Comments Oral Care Comments pt needs occasional min cues to avoid forward bending at sink OT ADL-Dressing Comments OT Dressing Comments did not occur as pt orthostatic after shower and needed to be in supine OT ADL-Toileting General Evaluation Toileting Ability Standby Assistance Areas Needing Assistance Manage Clothing Perform Perineal Hygiene Comments OT Toileting Comments provided further education re: body mechanics as pt tends to twist and resource for splash guard for BSC that pt will use over toilet at home OT ADL-Bathing Bathing Type Bathing Type Shower General Evaluation Bathing Ability Minimal Assistance Areas Needing Assistance Retrieving/Setting Up Items Wash/Dry Back Wash/Dry Lower Extremities Devices Bathing Equipment Long Handled Sponge or Alligator Shear Operator Held Shower Sprayer Shower Chair with Arms Comments OT Bathing Comments will place BSC in shower stall as pt relying on armrests for sit to stand. They have hand held shower hose. Pt would benefit from grab bars in shower stall if possible. Pt c/o seeing spots when drying off in shower. Pt assisted back to bed with close CGA of 2 using FWW. BP 88/43 HR 124 in supine, BP 103/52 HR 124 after 3 min in supine, BP 112/63 HR 123 after 6 min in supine. RN in room and monitoring pt. M6 OT- IP Functional Cognition Start: 04/09/19 14:23 Freq: Status: Active Protocol: Document 04/11/19 12:28 [facility] (Rec: 04/11/19 16:11 [facility] [email or web address]) Cognitive Factors Limiting Selfcare Function Cognitive Ability Level of Alertness Alert Patient Orientation Name Age Birthday Month Date Year Day of Week Place Situation Attention Span Ability Capable of Focused Attention Capable of Sustained Attention Ability to Follow Commands Able to Follow One Step Commands Safety Awareness Decreased Recall of Precautions Cognitive Comments Cognitive Assessment Comments Pt continues to need intermittent min cues to avoid bending/twisting during functional tasks. M7 OT- IP Mobility and Balance Start: 04/09/19 14:23 Freq: Status: Active Protocol: Document 04/11/19 12:28 [facility] (Rec: 04/11/19 16:11 [facility] [email or web address]) OT- Bed Mobility Assessment Rolling Type of Rolling Roll to Right Level of Assistance Standby Assistance Supine to Sit Supine to Sit Assist Standby Assistance Sit to Supine Sit to Supine Assist Minimal Assistance Scooting Scooting to Edge of Bed Standby Assistance OT-Transfer Assessment Sit to and From Stand Sit to and from Stand Contact Guard Assistance 1 Person Assistance Transfers Transfer Ability Contact Guard Assistance 1 Person Assistance Technique Transfer Destination Bed Car Chair Shower Stall Toilet Transfer Technique Stand Step Pivot Devices Transfer Assistive Devices Gait Belt Front Wheeled Walker Comments Mobility Comments Pt still needs verbal cues to avoid twisting during log rolling. More assist needed with transfers and bed mobility at end of session due to low BP. Provided education re: car transfer technique. OT- Gait Assessment Gait Gait Assistance Required: Contact Guard Assist Distance (Feet) 25 Assistive Devices Assistive Device Gait Belt Front Wheeled Walker OT- Balance Assessment Sitting Balance and Reactions Static Sitting Balance Ability Good Dynamic Sitting Balance Ability Good Standing Balance and Reactions Static Standing Balance Ability Good Dynamic Standing Balance Ability Good M8 OT- IP Objective Assessments Start: 04/09/19 14:23 Freq: Status: Active Protocol: Document 04/09/19 14:25 [facility] (Rec: 04/09/19 14:49 [facility] [email or web address]) OT Gross Range of Motion Upper Extremity Range of Motion Assessment Within Functional Limits OT Strength Upper Extremity Strength Assessment Within Functional Limits M9 OT- IP Assessment and Plan Start: 04/09/19 14:23 Freq: Status: Active Protocol: Document 04/11/19 12:28 P[facility] (Rec: 04/11/19 16:11 P[facility] [email or web address]) OT Summary Assessment and Plan Potential Rehabilitation Potential Good Summary OT Impairments Pain Strength Balance Functional Mobility Grooming Dressing Toileting Bathing Toilet Transfers Shower Transfers Progress Towards Goals Slow Progress due to Medical Issues Assessment Summary Hypotension limiting activity tolerance today as described above. RN aware and will discuss with PA/MD. Pt still needs min verbal cues to avoid twisting and bending during log rolling and functional self care tasks. Plan 1 Plan 1 additional OT visit to practice lower body dressing with emphasis on lumbar spine precautions. D/C plan home when pt medically stable. Supportive, capable will provide 24 hr assist at d/c. Goals Grooming Goal Independent Dressing Goal Contact Guard Assistance Toileting Goal Standby Assistance Bathing Goal Contact Guard Assistance Toilet Transfer Goal Standby Assistance Shower Transfer Goal Contact Guard Assistance Patient/Caregiver Education Goal Caregiver Independent Assisting Patient Days to Meet Goals 1 Frequency of Treatment Frequency Of Treatment Once a Day Treatment Plan OT Treatment Plan ADL Training Functional Cognition Training Functional Mobility Patient/Family Education Discharge Planning Discharge Recommendations OT Discharge Recommendations Home with Assistance Home Equipment Needs pt has BSC for use over toilet and will use as shower chair
[2019-04-11] MEDS: SODIUM CHLORIDE 0.9% 1,000 ML 1000 ML IV (13:04)
[2019-04-11] MEDS: ACETAMINOPHEN 325 MG TABLET 650 MG PO (13:52)
--- NOTE | 2019-04-11 14:54 | CM.DPC ---
Addendum entered by Vivian Cantor R.N. 04/11/19 15:21: Patient is not being discharged today. Spoke to patient, in the room. She had become dizzy and hypotensive, therefor, will be here another day. Discussed skilled rehab with patient, and she is not wanting to go to skilled facility. She stated that she also has cousins that can help her out at home. She is requesting home health to come in, mostly for shower assist, but will still need P.T or nursing. Will need to follow up with orthopedic team tomorrow to see if she can receive home health. Original Note: DCP Cont: Patient has discharge orders for today. Spouse and patient working with physical therapy team, and are receiving tuitorials regarding videos and transfers. Patient and spouse anxious about discharging. Patient should be discharging today, depending on how she is doing with physical therapy. P: DCP to continue to follow. Patient has discharge orders, but will see how she does with physical therapy. Vivian Cantor RN/[employer]
[2019-04-11] MEDS: OXYBUTYNIN 5 MG ER TAB 10 MG PO (17:08)
[2019-04-11] MEDS: GABAPENTIN 600 MG TABLET 1200 MG PO (21:55)
[2019-04-11] MEDS: MELATONIN 3 MG TABLET 9 MG PO (21:56)
[2019-04-12 06:18] VITALS: BP 139/78; PULSE 105; RESP 16; TEMP 36.7; O2SAT 96
[2019-04-12 07:35] VITALS: BP 132/76; PULSE 104; RESP 16; TEMP 37.1; O2SAT 90
[2019-04-12] MEDS: HYDROMORPHONE 2 MG TABLET 4 MG PO ×2 (07:45→11:38)
--- NOTE | 2019-04-12 08:12 | PT.IPTN ---
Current Diagnoses Other spondylosis with radiculopathy, lumbosacral region (04/08/19) Spinal stenosis, lumbar region without neurogenic claudication (04/08/19) Postlaminectomy syndrome, not elsewhere classified (04/08/19) Surgery Performed Operation Date: 04/08/19 12:15 Actual Procedures p L4-5,L5-S1 TLIF w/posterior instrumentation - Alonso Zambrano MD Physical Therapy Treatment Note M2 PT-IP Current Condition Start: 04/09/19 11:40 Freq: NEEDED Status: Active Protocol: Document 04/09/19 10:02 AB (Rec: 04/09/19 11:50 AB [id number]) Physical Therapy Current Condition Current Condition Evaluation Date 04/09/19 Treatment Diagnosis s/p L4-S1 fusion/lami; difficulty in walking Onset Date 04/08/19 Precautions Lumbar Precautions Log Roll No Twisting Limit Bending Lifting Restriction of 10 lbs Gait Belt above Incisional Area M3 PT-IP Subjective Start: 04/09/19 11:40 Freq: NEEDED Status: Active Protocol: Document 04/11/19 09:30 HH (Rec: 04/11/19 12:02 [email or web address]) Subjective Physical Therapy Visit Type Type Treatment Note Visit Start Time 09:30 Visit Stop Time 10:15 Total Visit Minutes 45 Number of NONPROFIT FUNDRAISER Visits 0 Physical Therapy Visit Comments Patient Comments pt agreeable to do PT; spouse present for caregiver training Therapy Pain Assessment Pain When Pain Assessed At Rest Pain Present Pain Present Pain Reported Location Lower Back Intensity 5 Scale Used Numeric (1 - 10) Pain Behaviors Calling Out Facial Grimacing Guarding Pain Management Techniques Distraction Re-positioning Timing of Activity with Medications M4 PT-IP Mobility and Gait Start: 04/09/19 11:40 Freq: NEEDED Status: Active Protocol: Document 04/11/19 09:30 HH (Rec: 04/11/19 12:02 [email or web address]) PT-Bed Mobility Assessment Rolling Type of Rolling Log Rolling Level of Assist Contact Guard Assistance Supine to Sit Supine to Sit Contact Guard Assistance Minimal Assistance 1 Person Assistance Sit to Supine Sit to Supine Contact Guard Assistance Minimal Assistance 1 Person Assistance Scooting Scooting to Edge of Bed Standby Assistance PT-Transfer Assessment Sit to and From Stand Sit to and from Stand Contact Guard Assistance Minimal Assistance Use of Upper Extremities Equipment Transfer Assistive Device Gait Belt Front Wheeled Walker Orthotic/Prosthetic Devices or Brace: No Transfers Transfer Destination Bed Chair Wheelchair Transfer Technique pt ambulated using FWW Transfer Ability Level of Assist Contact Guard Assistance Minimal Assistance 1 Person Assistance Use of Upper Extremities Comments Mobility Comments BP pre and post session : 120s /70s HR 105-130. Video taken with spouse's phone today for transfer techniques and safety instruction. Guided spouse to assist pt for supine <>sit x8 ; sit<> stand with gait belt and FWW x 5. Spouse needed cues for hand placements on pt during transfers and instructed him to refer to his phone video for reminded if needed. Gait Assessment Gait Gait Assistance Required: Contact Guard Assist 1 Person Assist Distance (Feet) 100 Able to Maintain Weight Bearing Status Yes During Gait Assistive Devices Assistive Device Gait Belt Front Wheeled Walker Orthotic/Prosthetic Devices or Brace: No Gait Deviations General Gait Pattern Antalgic Decreased Stride Length Decreased Feet Clearance Factors Limiting Gait Function Factors Limiting Gait Function Decreased Activity Tolerance Decreased Strength Difficulty Following Directions Limited Range of Motion Pain Poor Balance Poor Safety Awareness Comments Gait Comments guided spouse to amb with pt by holding on pt's gait belt. Instructed him to place gait belt above incisional area. Stair Climbing Assessment Evaluation Level of Assist On Stairs Contact Guard Assistance Minimal Assistance 1 Person Assistance Devices Stair Climbing Assistive Devices Front Wheel Walker Technique/Endurance Stair Climbing Direction Ascend and Descend Stair Climbing Technique Step to Step Number of Steps Climbed 1 Query Text: Stair Climbing Set # Repetitions (reps) 2 Comments Stair Climbing Comments used platform step today. Instructed spouse to assist pt on one side so pt could use wall for support during descend. M5 PT-IP Objective Assessments Start: 04/09/19 11:40 Freq: NEEDED Status: Active Protocol: Document 04/09/19 10:02 AB (Rec: 04/09/19 11:50 AB [id number]) Orientation Orientation/Cognition Level of Alertness Alert Orientation Name Place Situation Safety Awareness Decreased Safety Awareness Memory Description Short Term Impaired Gross Range of Motion Lower Extremity ROM Assessment Within Functional Limits Strength Lower Extremity Strength Assessment Bilaterally Impaired Comments Strength Comments RLE 4-/5 LLE: 3+/5 Coordination Assessment Gross Coordination Gross Coordination WNL Sensation Assessment Sensation Gross Sensation Left LE Impaired Light Touch Impaired Proprioception (Position) Impaired Sensation Description Numbness Tingling Muscle Tone Muscle Tone WNL Yes M6 PT-IP Treatment Start: 04/09/19 11:40 Freq: NEEDED Status: Active Protocol: Document 04/11/19 09:30 HH (Rec: 04/11/19 12:02 [email or web address]) Physical Therapy Treatment Education Education Provided Safety Other Treatments Other Treatment Performed nurse wound care training for bed mobility, transfer and gait training. adjustment for pt's new FWW M7 PT-IP Assessment and Plan Start: 04/09/19 11:40 Freq: NEEDED Status: Active Protocol: Document 04/11/19 09:30 HH (Rec: 04/11/19 12:02 HH [email or web address]) PT Summary Assessment and Plan Summary Impairments Pain ROM Strength Balance Coordination Sensation Cognition Bed Mobility Transfers Gait Activity Tolerance Progress Towards Goals Safe For Discharge Assessment Summary CG training conducted and spouse showed improved understanding and techniques for pt handling during transfers and bed mobility. Video taken for pt handling with spouse's phone for future reminder. Pt's VS remains stable today but she did c/o fatigue towards the end of session and requested to bed rest. Recommended pt to rest adequately prior to d/c home today. Pt also stated her cousin will stay with her for the next 4/5 days to assist and would like to have home health to improve her mobility . Frequency of Treatment Frequency Of Treatment Discharge Treatment Plan Physical Therapy Treatment Plan Bed Mobility Training Transfer Training Gait Training Therapeutic Exercise Balance Retraining Post Op Education Discharge Planning Hot or Cold Pack Neuromuscular Re-ed Coordination Retraining Manual Therapy Recommendations To Nursing Amount of Assist Needed 1 Person Assist Discharge Recommendations PT Discharge Recommendations Home with Assistance Home Health
[2019-04-12] MEDS: LIOTHYRONINE 25 MCG TABLET PO (09:07)
[2019-04-12] MEDS: SODIUM CHLORIDE 0.9% FLUSH 10 ML IV (09:11)
[2019-04-12] MEDS: LEVOTHYROXINE 50 MCG TABLET PO (09:12)
--- NOTE | 2019-04-12 10:25 | CM.DPC ---
DCP: continued: Case received, EMR reviewed and spoke this morning with ortho PA Claudia. Discussed ? of a bath aide under the HH benefit. Claudia confirmed that HH RN or PT were not indicated and that she had raised this in discussion with pt in her rounds today. She said pt was still eager to d/c to home setting and that her female cousin as well as her would be continuing to assist her as in the home setting. Met then with pt, currently in middle of OT session. She confirmed same and she expects to be going home today as per plan. ISABELLE Lucio is updated. P: home today with family assist and ortho clinic followup as per initial plan.
--- NOTE | 2019-04-12 10:41 | OT.IP.TRT ---
Current Diagnoses Other spondylosis with radiculopathy, lumbosacral region (04/08/19) Spinal stenosis, lumbar region without neurogenic claudication (04/08/19) Postlaminectomy syndrome, not elsewhere classified (04/08/19) Surgery Performed Operation Date: 04/08/19 12:15 Actual Procedures p L4-5,L5-S1 TLIF w/posterior instrumentation - Alonso Zambrano MD Occupational Therapy Treatment Note M2 OT-IP Current Condition Start: 04/09/19 14:23 Freq: Status: Active Protocol: Document 04/09/19 14:25 [facility] (Rec: 04/09/19 14:49 [facility] [email or web address]) Occupational Therapy Current Condition Current Condition Evaluation Date 04/09/19 Treatment Diagnosis L4-5, L5-S1 lumbar spinal stenosis Diagnosis Onset Date 04/08/19 Post Operative Precautions Lumbar Precautions Log Roll No Twisting Limit Bending Lifting Restriction of 10 lbs Gait Belt above Incisional Area Weight Bearing Status Weight Bearing Status Weight Bear as Tolerated M3 OT- IP Subjective and Pain Start: 04/09/19 14:23 Freq: Status: Active Protocol: Document 04/12/19 10:36 [facility] (Rec: 04/12/19 10:41 [facility] [email or web address]) OT- Subjective Occupational Therapy Visit Type Type Treatment Note Visit Start Time 10:00 Visit Stop Time 10:30 Total Visit Minutes 30 Occupational Therapy Visit Comments Patient Comments Pt wanting to get dressed and use the toilet. OT Pain Assessment Pain When Pain Assessed At Rest Pain Present Pain Present Denied Pain M4 OT- IP ADL's Start: 04/09/19 14:23 Freq: Status: Active Protocol: Document 04/12/19 10:36 [facility] (Rec: 04/12/19 10:41 [facility] [email or web address]) OT ADL-Grooming General Evaluation Grooming Ability Standby Assistance Areas Needing Assistance Combing/Brushing Hair Face Washing Comments OT Grooming Comments Pt able to stand for all grooming needs with FWW and still needing reminders not to twist. OT ADL-Oral Care General Eval Oral Care Ability Independent OT ADL-Dressing General Eval Lower Body Dressing Ability Maximum Assistance Areas Needing Assistance Shoes OT ADL-Toileting General Evaluation Toileting Ability Standby Assistance Areas Needing Assistance Manage Clothing Perform Perineal Hygiene Comments OT Toileting Comments Pt able to stand to all hygiene needs independently. M5 OT- IP IADL's Start: 04/09/19 14:23 Freq: Status: Active Protocol: Document 04/09/19 14:25 [facility] (Rec: 04/09/19 14:49 [facility] [email or web address]) OT-Instrumental Activities of Daily Living Home Safety Awareness Awareness of Need for Assistance at Home Good Awareness Money Management Money Management Comments Pt aware as pain medications affect for thinking that she is aware to have assist for needs. Meal Preparation Meal Preparation Caregiver Provides Assist Conical Mixer Conical Mixer Caregiver Provides Assist M6 OT- IP Functional Cognition Start: 04/09/19 14:23 Freq: Status: Active Protocol: Document 04/12/19 10:36 [facility] (Rec: 04/12/19 10:41 [facility] [email or web address]) Cognitive Factors Limiting Selfcare Function Cognitive Ability Safety Awareness Decreased Ability to Apply Precautions Cognitive Comments Cognitive Assessment Comments Pt continues to need intermittent min cues to avoid bending/twisting during functional tasks. M7 OT- IP Mobility and Balance Start: 04/09/19 14:23 Freq: Status: Active Protocol: Document 04/12/19 10:36 [facility] (Rec: 04/12/19 10:41 [facility] [email or web address]) OT-Transfer Assessment Sit to and From Stand Sit to and from Stand Standby Assistance Transfers Transfer Ability Standby Assistance 1 Person Assistance Technique Transfer Destination Bed Chair Toilet Devices Transfer Assistive Devices Gait Belt Front Wheeled Walker Comments Mobility Comments VC not to twist while turning. M8 OT- IP Objective Assessments Start: 04/09/19 14:23 Freq: Status: Active Protocol: Document 04/09/19 14:25 [facility] (Rec: 04/09/19 14:49 [facility] [email or web address]) OT Gross Range of Motion Upper Extremity Range of Motion Assessment Within Functional Limits OT Strength Upper Extremity Strength Assessment Within Functional Limits M9 OT- IP Assessment and Plan Start: 04/09/19 14:23 Freq: Status: Active Protocol: Document 04/12/19 10:36 [facility] (Rec: 04/12/19 10:41 [facility] [email or web address]) OT Summary Assessment and Plan Summary Assessment Summary Pt doing well and looking to go home today. Pt states will have cousin and to assist for all needs at home. Discharge Recommendations OT Discharge Recommendations Home with Assistance Home Equipment Needs pt has BSC for use over toilet and will use as shower chair
[2019-04-12] MEDS: GABAPENTIN 300 MG CAPSULE 900 MG PO (10:51)
[2019-04-12] MEDS: BUDESONIDE 3 MG CAP PO (10:51)
--- NOTE | 2019-04-12 11:17 | PC.NURSE ---
Addendum entered by Khadijah Gama R.N. 04/12/19 11:52: pt left unit in no distress at 1152 via wheelchair with all belongings with [employer]. Pt's cousin present to drive pt home. Original Note: Day Shift- Pt A&OX4, ready for discharge. Pain to lower back controlled with prn Dilaudid. Lower back coversite dressing CDI, CMS+, PPP. No new symptoms. Chronic numbness to right thigh and left toes to below knee prior to surgery. Discharge summary reviewed with pt, all questions answered. Follow up appointment confirmed by calling office as pt and her were not sure of first follow up appointment. Aware to also prevent constipation, pt states has miralax at home. Pt had soft bm this AM, wanted to hold on scheduled docusate and prune juice this AM. States has all belongings. Pt's cousin present to drive pt home.
== END 2019-04-12 11:52 | disposition home or self-care (01) | DRG 455 ==
PROVIDERS: Physician Assistant Medical; Admitting Provider Orthopaedic Surgery Orthopaedic Surgery of the Spine; PCP Registered Nurse; Visit Provider Orthopaedic Surgery Orthopaedic Surgery of the Spine
PROC: 0SG00AJ Fusion of Lumbar Vertebral Joint with Interbody Fusion Device, Posterior Approach, Anterior Column, Open Approach (ICD-10-PCS; principal; 2019-04-08 12:15)
DX: M48.061 Spinal stenosis, lumbar region without neurogenic claudication (principal); M47.27 Other spondylosis with radiculopathy, lumbosacral region; M96.1 Postlaminectomy syndrome, not elsewhere classified; G47.33 Obstructive sleep apnea (adult) (pediatric); M48.07 Spinal stenosis, lumbosacral region; R00.0 Tachycardia, unspecified; M54.5 Low back pain; I95.9 Hypotension, unspecified
CPT/HCPCS: 36415; 72100; 76000; 80053; 85014; 85018; 94760; 97116; 97161; 97165; 97530; 97535; C1776; C9290; J0330; J0690; J1100; J1170; J2405; J2704; J3010; J3410

== ENCOUNTER 2023-12-06 09:23 | Day surgery (SDC) | payer MEDICARE, OTHER, SELFPAY ==
[2019-04-08 17:08] VITALS: BMI 26.6
[2023-12-06] VITALS (7 sets, daily range): BP systolic 108–144; BP diastolic 66–91; PULSE 86–96; RESP 16–28; TEMP 36.1–36.8; O2SAT 92–96
--- NOTE | 2023-12-06 | PATH_ITS ---
[facility] Accession Number: [id number] No. of containers..01 Tissue . 01 Material submitted: . colon - CECUM POLYP . 01 Diagnosis: Cecum, Polyp: Tubular adenoma. JNL 12/08/2023 1503 Local . 01 Electronically signed: . Terri Garcia MD, Pathologist NPI- [id number] . 01 Gross description: . CECUM POLYP: Received in formalin is 1 fragment(s) of david, soft tissue measuring 0.4 x 0.4 x 0.3 cm submitted entirely in 1 cassette(s) /NATHALIA 12/07/2023 1923 Local . 01 Pathologist provided ICD-10: D12.0 . 01 CPT . 104755 Specimen Comment: A courtesy copy of this report has been sent to [phone] Performed at: 01 [facility] [address] [place] [address], [place], [place] [id number] MD Bashir Read MD Phone: [phone]
--- NOTE | 2023-12-06 09:54 | PM.HP.1 ---
History of Present Illness History of Present Illness Date Patient Seen: 12/06/23 Chief complaint: PAC Narrative: History of colon polyps with possible residual from a year ago need for evaluation and removal [facility] Medical History (Updated 04/01/19 @ 10:37 by Taryn Brewsetr RN) Elevated diaphragm Numbness (~2018) Lymphocytic colitis History of electrophysiologic study (~11/2011) Urinary incontinence RLS (restless legs syndrome) Hypothyroidism Ovarian cyst Hx of vaginal delivery Near syncope History of blood clots (~1974) Heart murmur GERD (gastroesophageal reflux disease) Gastroparesis Fibromyalgia Depression Compression fracture of T12 vertebra Cervical spondylosis Arthritis Arrhythmia Anemia BLAYNE III (cervical intraepithelial neoplasia III) Non-sustained ventricular tachycardia ELIAS on CPAP HLD (hyperlipidemia) HTN (hypertension) Surgical History (Updated 04/01/19 @ 10:30 by Taryn Brewster RN) History of bilateral carpal tunnel release History of total abdominal hysterectomy and bilateral salpingo-oophorectomy (~1978) History of laparotomy History of surgery (~1955) Hx of laminectomy (~2011) History of bilateral cataract extraction (~2010) Hx of cholecystectomy (~1998) Hx of cardiac catheterization (~07/2011) History of bladder suspension procedure Hx of appendectomy History of stress incontinence procedure using tension free vaginal tape Status post ovarian cystectomy Status post hysterectomy Social History household members: spouse Smoking Status: Never smoker alcohol intake: current Meds Home Medications and Allergies Home Medications Medication Instructions Recorded Confirmed Type acetaminophen 650 mg 500 mg PO Q4H ##0 04/25/17 04/08/19 History tablet,extended release alpha lipoic acid 600 mg capsule 600 mg PO BID ##0 04/25/17 04/08/19 History aspirin 81 mg tablet,delayed 81 mg PO BEDTIME ##0 04/25/17 04/08/19 History release budesonide 3 mg 3 mg PO QDAY lymphocytic colitis 04/25/17 04/08/19 History capsule,delayed,extended release ##0 cholecalciferol (vitamin D3) 50 1 tab PO QDAY ##0 04/25/17 04/08/19 History mcg (2,000 unit) tablet (Vitamin D3) cyclosporine 0.05 % eye drops in a 1 drp OPHTH BID ##0 04/25/17 04/08/19 History dropperette (Restasis) docusate sodium 100 mg capsule 100 mg PO BIDP ##0 04/25/17 04/08/19 History (Colace) fexofenadine 180 mg tablet 180 mg PO DAILY ##0 04/25/17 04/08/19 History gabapentin 800 mg tablet 2,100 mg PO SEEINSTR ##0 04/25/17 04/08/19 History (Neurontin) liothyronine 25 mcg tablet 25 mcg PO QDAY ##0 04/25/17 04/08/19 History (Cytomel) melatonin 10 mg capsule 10 mg PO HS ##0 04/25/17 04/08/19 History omega 0-xyf-mbm-fish oil 1,000 mg 1,400 mg PO QPM ##0 04/25/17 04/08/19 History (120 mg-180 mg) capsule (Fish Oil) vitamin B complex (B 1 tab PO QDAY ##0 04/25/17 04/08/19 History Complex-Vitamin B12 tablet) levothyroxine 25 mcg tablet 0.05 mcg PO QAM #0 tabs 04/18/18 04/08/19 History (Synthroid) alendronate 70 mg tablet 70 mg PO QWEEK 04/01/19 04/08/19 History diphenhydramine 25 2 tab PO BEDTIME 04/01/19 04/08/19 History mg-acetaminophen 500 mg tablet (Tylenol PM Extra Strength) multivitamin 1 cap PO DAILY 04/01/19 04/08/19 History ondansetron 8 mg disintegrating 8 mg PO TID PRN Nausea 04/01/19 04/08/19 History tablet oxybutynin chloride 10 mg 10 mg PO QPM 04/01/19 04/08/19 History tablet,extended release 24 hr (Ditropan XL) pantoprazole 40 mg tablet,delayed 40 mg PO BID 04/01/19 04/08/19 History release hydromorphone 2 mg tablet 4 mg (2 x 2 mg) PO Q4HR PRN Pain, 04/11/19 Rx Severe (7-10) #30 tabs hydroxyzine pamoate 25 mg capsule 25 mg PO Q4HR PRN Nausea And 04/11/19 Rx Vomiting #30 caps Allergies Allergy/AdvReac Type Severity Reaction Status Date / Time adhesive Allergy Severe blisters Verified 04/08/19 10:55 from pain patch applied Sulfa (Sulfonamide Allergy Severe Hives Verified 04/08/19 10:55 Antibiotics) [SULFA (SULFONAMIDE ANTIBIOTICS)] nitrofurantoin Allergy Intermediate Hives, Verified 04/08/19 10:55 [From MACROBID] Dizziness, headache duloxetine [From CYMBALTA] AdvReac Severe Diarrhea Verified 04/08/19 10:55 ranitidine [RANITIDINE] AdvReac Severe Dizziness Verified 04/08/19 10:55 codeine [CODEINE] AdvReac Intermediate Vomiting Verified 04/08/19 10:55 Exam Narrative Exam Narrative: Oropharynx free of lesions Chest clear to auscultation percussion Cardiac exam reveals no S3 or murmur Assessment & Plan Assessment & Plan narrative: History of colon polyps with possible residual polyp need for follow-up colonoscopy. Risks, benefits, alternatives have been explained.
--- NOTE | 2023-12-06 09:56 | PM.OP.COLON ---
Operative Date/Time/Diagnoses Date of procedure: 12/06/23 Pre-op diagnosis: See indication and findings Procedure & Clinicians Study performed: Colonoscopy Indications: History of polyps with possible residual polyp Surgeon: Trent Amor Procedure Notes Procedure in detail: After informed consent was obtained the patient was placed in left lateral decubitus position. The video colonoscope was introduced the rectum slowly advanced cecum. On slow withdrawal mucosa was carefully examined. The scope was removed. The patient tolerated procedure well. Blood loss none Complications none Sedation mac Findings 1. Indistinct 8 mm polyp in the cecum Jumbo biopsy x2 and removed completely 2. May have been a very small additional polyp in the transverse colon which could not be relocated. 3. Few distal diverticula 4. Otherwise negative colonoscopy to cecum Follow-up colonoscopy should occur in 5 years.
[2023-12-06] MEDS: LACTATED RINGERS 1,000 ML 42 ML IV (10:10)
== END 2023-12-06 11:27 | disposition home or self-care (01) ==
PROVIDERS: PCP Registered Nurse; Referring Provider Internal Medicine Gastroenterology; Visit Provider Internal Medicine Gastroenterology
PROC: 0DJD8ZZ Inspection of Lower Intestinal Tract, Via Natural or Artificial Opening Endoscopic (ICD-10-PCS; CPT 45378; principal; 2023-12-06 10:30)
DX: Z09 Encounter for follow-up examination after completed treatment for conditions other than malignant neoplasm (principal); Z86.010 Personal history of colon polyps; K57.30 Diverticulosis of large intestine without perforation or abscess without bleeding; D12.0 Benign neoplasm of cecum
CPT/HCPCS: 45380; J2704

== ENCOUNTER → 2025-07-25 09:12 | Outpatient (CLI) | payer MEDICARE, OTHER, SELFPAY ==
[2025-06-05 16:22] VITALS: BMI 26.6
--- NOTE | 2025-07-25 09:14 | DI.RAD.S_ITS ---
PROCEDURE: XR HAND RT MIN 3V INDICATIONS: bilateral hand pain and knee pain TECHNIQUE: 3 views of the hand(s) acquired. COMPARISON: None. FINDINGS: Bones: No fractures or dislocations. Degenerative changes of the trapeziometacarpal, triscaphe and interphalangeal joints include joint space narrowing, marginal osteophytosis and subchondral sclerosis. Carpal bones are normally aligned. No suspicious bony lesions. Soft tissues: No suspicious soft tissue calcifications. IMPRESSION: Polyarticular arthropathy of the TMC, STT and IP joints without evidence of acute bony abnormality. Dictated by: Isaias Hall M.D. on 07/28/2025 at 4:43 Approved by: Isaias Hall M.D. on 07/28/2025 at 4:45
--- NOTE | 2025-07-25 09:14 | DI.RAD.S_ITS ---
PROCEDURE: XR KNEE RT 3V INDICATIONS: bilateral hand pain and knee pain TECHNIQUE: 3 views of the knee were acquired. COMPARISON: None. FINDINGS: Bones: No fractures or dislocations. Severe lateral and moderate medial tibiofemoral and severe patellofemoral compartment narrowing with associated osteophytosis. Valgus angulation. No suspicious bony lesions. Soft tissues: No joint effusion. No suspicious soft tissue calcifications. IMPRESSION: KL grade 4 tricompartmental osteoarthritis without evidence of acute bony abnormality or significant effusion. Valgus angulation. Dictated by: Isaias Hall M.D. on 07/28/2025 at 4:48 Approved by: Isaias Hall M.D. on 07/28/2025 at 4:51
--- NOTE | 2025-07-25 09:14 | DI.RAD.S_ITS ---
PROCEDURE: XR HAND LT MIN 3V INDICATIONS: bilateral hand pain and knee pain TECHNIQUE: 4 views of the hand(s) acquired. COMPARISON: None. FINDINGS: Bones: No fractures or dislocations. Degenerative change of the trapeziometacarpal, triscaphe and interphalangeal joints includes joint space narrowing, marginal osteophytosis and subchondral sclerosis. Carpal bones are normally aligned. No suspicious bony lesions. Soft tissues: No suspicious soft tissue calcifications. IMPRESSION: Polyarticular arthropathy of the TMC, STT and IP joints without evidence of acute bony abnormality. Dictated by: Isaias Hall M.D. on 07/28/2025 at 4:45 Approved by: Isaias Hall M.D. on 07/28/2025 at 4:47
--- NOTE | 2025-07-25 09:14 | DI.RAD.S_ITS ---
PROCEDURE: XR KNEE LT 3V INDICATIONS: bilateral hand pain and knee pain TECHNIQUE: 3 views of the knee were acquired. COMPARISON: None. FINDINGS: Bones: No fractures or dislocations. Moderate lateral and mild to moderate medial tibiofemoral and moderate to severe patellofemoral compartment narrowing with associated osteophytosis. No suspicious bony lesions. Soft tissues: No joint effusion. No suspicious soft tissue calcifications. IMPRESSION: KL grade 3 tricompartmental osteoarthritis without evidence of acute bony abnormality or significant effusion. Dictated by: Isaias Hall M.D. on 07/28/2025 at 4:42 Approved by: Isaias Hall M.D. on 07/28/2025 at 4:43
[2025-07-25 10:50] LABS: Add Manual Diff / Slide Review NO; Hematocrit 39.9 % (36-46); Hemoglobin 13.9 g/dL (12.0-16.0); Lymphocytes Absolute Auto 1500 /uL (1100-4500); Mean Corpuscular HGB Conc 34.7 % (30-36); Mean Corpuscular Hemoglobin 31.6 PG (26-34); Mean Corpuscular Volume 91.0 fL (80-100); Platelet Count 202 X10^3/uL (150-400)
[2025-07-25 10:54] LABS: Hemoglobin A1C% w Est Avg Glu 5.6 % (4.0-6.0)
[2025-07-25 11:08] LABS: Alanine Aminotransferase 16 IU/L (<35); Albumin 4.4 g/dL (3.5-5.0); Albumin Globulin Ratio 1.8 (1.0-2.8); Alkaline Phosphatase 104 U/L (38-126); Blood Urea Nitrogen 13 mg/dL (7-17); Calcium 9.6 mg/dL (8.4-10.2); Carbon Dioxide 26 mmol/L (22-32); Chloride 104 mmol/L (98-107); Cholesterol 224 mg/dL (140-199); Estimated Glomerular Filt Rate > 60 mL/min (>60); Globulin 2.5 g/dL (1.7-4.1); Glucose 91 mg/dL (70-99); HDL Cholesterol 64 mg/dL (40-60); HEMOLYSIS < 15 (0-50); Potassium 4.4 mmol/L (3.4-5.1); Sodium 138 mmol/L (137-145); Total Protein 6.9 g/dL (6.3-8.2); Triglycerides 218 mg/dL (35-150)
[2025-07-25 11:38] LABS: TSH w/ Reflex to FT4 1.75 uIU/mL (0.47-4.68)
== END ==
PROVIDERS: PCP Family Medicine; Referring Provider Family Medicine; Visit Provider Family Medicine
DX: M17.0 Bilateral primary osteoarthritis of knee (principal); M19.042 Primary osteoarthritis, left hand; M19.041 Primary osteoarthritis, right hand; M79.642 Pain in left hand; M79.641 Pain in right hand; M25.562 Pain in left knee; M25.561 Pain in right knee; R73.03 Prediabetes; E03.9 Hypothyroidism, unspecified; D64.9 Anemia, unspecified; E78.5 Hyperlipidemia, unspecified; I10 Essential (primary) hypertension; R53.83 Other fatigue; G47.33 Obstructive sleep apnea (adult) (pediatric); Z99.89 Dependence on other enabling machines and devices
CPT/HCPCS: 36415; 73130; 73562; 80053; 80061; 83036; 84443; 85025; 85651; 86140; 86430

== ENCOUNTER → 2025-07-28 14:10 | Outpatient (CLI) | payer MEDICARE, OTHER, SELFPAY ==
[2025-06-05 16:22] VITALS: BMI 26.6
--- NOTE | 2025-07-28 14:11 | DI.RAD.S_ITS ---
PROCEDURE: XR DEXA AXIAL SKELETON INDICATIONS: Osteoporosis COMPARISON: None. FINDINGS: Lumbar Spine: Not applicable. Left Femoral Neck: Bone mineral density 0.647 g/cm2, T score -1.8. Left Hip: Bone mineral density 0.770 g/cm2, T score -1.4. Left Forearm: Bone mineral density 0.573 g/cm2, T score -2.0. Fracture Risk Calculation (when applicable): 10-year fracture risk of a major osteoporotic fracture 19 percent and of a hip fracture 4.7 percent. (T score greater or equal to -1.0 to: NORMAL) (T score from -1.1 to -2.4: OSTEOPENIA) (T score less than or equal to -2.5: OSTEOPOROSIS) IMPRESSION: Osteopenia. Follow-up guidelines as follows: Osteoporosis: Consider a repeat DEXA and Vertebral Fracture Assessment (VFA) exam in 2 years or sooner if medically necessary, to reassess this patient's status. Osteopenia: Consider a repeat DEXA in 2-3 years to reassess this patient's status, or if there is a new clinical indication. Normal: Consider a repeat DEXA in 5 years or sooner, or if there is a new clinical indication. All treatment decisions require clinical judgment and consideration of individual patient factors, including patient preferences, comorbidities, previous drug use, risk factors not captured in the FRAX model (e.g., frailty, falls, vitamin D deficiency, increased bone turnover, interval significant decline in bone density ) and possible under- or over-estimation of fracture risk by FRAX. In addition, the NOF Guide recommends that FDA-approved medical therapies be considered in postmenopausal women and men age >= 50 years with a: * Hip or vertebral (clinical or morphometric) fracture * T-score of <=-2.5 at the spine or hip * Ten-year fracture probability by FRAX of >= 3% for hip fracture or >=20% for major osteoporotic fracture. Dictated by: Eric Lynch M.D. on 07/28/2025 at 17:00 Approved by: Eric Lynch M.D. on 07/28/2025 at 17:01
== END ==
LOC: RAD 14:10
PROVIDERS: PCP Family Medicine; Referring Provider Family Medicine; Visit Provider Family Medicine
DX: M81.0 Age-related osteoporosis without current pathological fracture (principal); M79.641 Pain in right hand; M79.642 Pain in left hand; M25.562 Pain in left knee; M25.561 Pain in right knee; M85.89 Other specified disorders of bone density and structure, multiple sites
CPT/HCPCS: 77080

== ENCOUNTER → 2025-08-20 11:44 | Outpatient (CLI) | payer MEDICARE, OTHER, SELFPAY ==
[2025-06-05 16:22] VITALS: BMI 26.6
--- NOTE | 2025-08-20 11:46 | DI.MRI.S_ITS ---
PROCEDURE: MR LUMBAR SPINE WO CON INDICATIONS: chronic low back pain TECHNIQUE: Noncontrast sagittal T1 spin echo and T2 fast echo, sagittal STIR, and T2 fast spin echo through the lumbar spine. In cases with scoliosis, additional coronal T2 fast spin echo may be performed. COMPARISON: [facility], MR, MR LUMBAR SPINE WITHOUT CONTRAST, 11/15/2021, 15:58. [facility], CR, XR LUMBAR SPINE 2 OR 3 VIEWS, 04/02/2025, 12:43. FINDINGS: Image quality: Excellent Posterior fusion instrumentation with interbody spacer at L5-S1. Straightening of the lumbar spine. Mild anterior compression fracture of T12, chronic. Moderate anterior compression fracture of L1 with vertebroplasty changes, chronic. Mild retropulsion of posterior L1 vertebral body. Mild superior endplate fracture of L3 with probe tibial plasty changes, chronic. No acute fracture of the lumbar spine. Mild fibrovascular end plate change at L2-3. Multilevel disc bulge and disc desiccation. Conus terminates at the level of L1-2, and is unremarkable. Right neural foraminal stenosis: Mild at L2-3, L3-4. Left neural foraminal stenosis: Mild at L2-3, L3-4. Moderate at L5-S1. Axial images: T11-T12: Mild retropulsion of posterior T12 vertebral body. No central canal stenosis. T12-L1: Retropulsion of posterior L1 vertebral body. Mild bilateral facet arthropathy. Mild central canal stenosis. L1-2: Disc bulge. Mild central canal stenosis. L2-3: Disc bulge. Moderate bilateral facet arthropathy. Moderate central canal stenosis. L3-4: Disc bulge. Severe bilateral facet arthropathy. Severe central canal stenosis. L4-5: Left laminectomy. No central canal stenosis. Moderate bilateral facet arthropathy. L5-S1: Left laminectomy. Mild right, moderate left facet arthropathy. No central canal stenosis. Visualized sacrum is intact. Severe fatty atrophy of the posterior paraspinal musculature at the level of the sacrum. IMPRESSION: 1. Multilevel degenerative changes, most pronounced at L3-4, where there is severe central canal stenosis, progressed from prior exam. 2. Moderate left neural foraminal stenosis at L5-S1, progressed. 3. Multiple chronic compression fracture at the lower thoracic spine and at the lumbar spine. 4. Postprocedure changes. Dictated by: Khadijah Douglas M.D. on 08/20/2025 at 12:38 Approved by: Khadijah Douglas M.D. on 08/20/2025 at 12:49
--- NOTE | 2025-08-20 12:59 | DI.RAD.S_ITS ---
PROCEDURE: XR LUMBAR SPINE 2-3V INDICATIONS: chronic low back pain TECHNIQUE: 3 views of the lumbar spine were acquired. COMPARISON: [facility], CR, XR LUMBAR SPINE 2-3V, 04/08/2019, 12:45. FINDINGS: Lumbar spine curvature and alignment: Slight leftward curve lower thoracic and upper lumbar spine. Bones: Moderate L1 compression fractures been arrested by kyphoplasty. Mild L3 compression fracture also wrist by kyphoplasty. Moderate T12 compression fracture appreciated . Disc spaces: Anterior/posterior L4-5 L5-S1 fusion provided by interbody spacers, pedicle screws and short interbody struts. Alignment is anatomic no postsurgical complication. L2-3 and L3-4 degenerative disc disease. Soft tissues: No soft tissue swelling, calcification or mass. IMPRESSION: Chronic findings as described Dictated by: Adrian Webster M.D. on 08/21/2025 at 11:41 Approved by: Adrian Webster M.D. on 08/21/2025 at 11:43
== END ==
PROVIDERS: PCP Family Medicine; Referring Provider Family Medicine; Visit Provider Family Medicine
DX: M51.16 Intervertebral disc disorders with radiculopathy, lumbar region (principal); M48.54XA Collapsed vertebra, not elsewhere classified, thoracic region, initial encounter for fracture; G89.29 Other chronic pain; Z98.1 Arthrodesis status
CPT/HCPCS: 72100; 72148

== ENCOUNTER → 2025-09-16 14:35 | Outpatient (CLI) | payer MEDICARE, OTHER, SELFPAY ==
[2025-06-05 16:22] VITALS: BMI 26.6
[2025-09-16 15:39] LABS: Alanine Aminotransferase 35 IU/L (<35); Albumin 4.5 g/dL (3.5-5.0); Albumin Globulin Ratio 1.7 (1.0-2.8); Alkaline Phosphatase 112 U/L (38-126); Blood Urea Nitrogen 15 mg/dL (7-17); Calcium 9.7 mg/dL (8.4-10.2); Carbon Dioxide 31 mmol/L (22-32); Chloride 100 mmol/L (98-107); Estimated Glomerular Filt Rate > 60 mL/min (>60); Globulin 2.6 g/dL (1.7-4.1); Glucose 98 mg/dL (70-99); HEMOLYSIS < 15 (0-50); Potassium 4.4 mmol/L (3.4-5.1); Sodium 139 mmol/L (137-145); Total Protein 7.1 g/dL (6.3-8.2)
== END ==
PROVIDERS: PCP Family Medicine; Referring Provider Family Medicine; Visit Provider Family Medicine
DX: E87.1 Hypo-osmolality and hyponatremia (principal)
CPT/HCPCS: 36415; 80053

== ENCOUNTER → 2025-10-07 15:52 | Outpatient (CLI) | payer MEDICARE, OTHER, SELFPAY ==
[2025-06-05 16:22] VITALS: BMI 26.6
[2025-10-07 17:12] LABS: Alanine Aminotransferase 55 IU/L (<35); Albumin 4.0 g/dL (3.5-5.0); Albumin Globulin Ratio 1.4 (1.0-2.8); Alkaline Phosphatase 306 U/L (38-126); Blood Urea Nitrogen 14 mg/dL (7-17); Calcium 9.7 mg/dL (8.4-10.2); Carbon Dioxide 29 mmol/L (22-32); Chloride 101 mmol/L (98-107); Estimated Glomerular Filt Rate > 60 mL/min (>60); Globulin 2.8 g/dL (1.7-4.1); Glucose 108 mg/dL (70-99); HEMOLYSIS < 15 (0-50); Potassium 4.7 mmol/L (3.4-5.1); Sodium 138 mmol/L (137-145); Total Protein 6.8 g/dL (6.3-8.2)
[2025-10-08 17:05] LABS: Microalbumi Creatinin Ratio Ur 118.0 ug/mg CR (<30)
== END ==
PROVIDERS: PCP Family Medicine; Referring Provider Physician Assistant; Visit Provider Physician Assistant
DX: E87.1 Hypo-osmolality and hyponatremia (principal); R79.89 Other specified abnormal findings of blood chemistry; E03.9 Hypothyroidism, unspecified; D64.9 Anemia, unspecified; E78.5 Hyperlipidemia, unspecified; I10 Essential (primary) hypertension; R53.83 Other fatigue; R73.03 Prediabetes; G47.33 Obstructive sleep apnea (adult) (pediatric); Z99.89 Dependence on other enabling machines and devices
CPT/HCPCS: 36415; 80053; 82043; 82570